=== PATIENT | female | born 1960 | race Caucasian/White ===

== ENCOUNTER 2022-07-25 08:05 | Outpatient (REF) | payer OTHER, SELFPAY ==
[2022-07-25 11:31] LABS: Appearance Urine Clear; Color Urine Yellow; Glucose Urine UA Negative (Negative); Leukocyte Esterase Urine Small (1+) (Negative); Nitrite Urine Negative (Negative); PH >= 9.0 (5.0-9.0); UMIC TRIGGER UA YES; Urine Blood Negative (Negative); Urine Ketones Negative (Negative); Urine Protein Trace mg/dL (Neg-Trace)
[2022-07-25 11:46] LABS: Bacteria Urine None Seen (None Seen); Hyaline Casts Urine 0-2 /LPF (0-2); WBC Urine 0-5 /HPF (0-5)
[2022-07-25 12:00] LABS: Alanine Aminotransferase 28 U/L (0-31); Albumin Level 4.1 g/dL (3.5-5.0); Alkaline Phosphatase 87 U/L (39-117); Anion Gap 12 (12-20); Aspartate Amino Transferase 24 U/L (5-31); Bilirubin Total 0.7 mg/dL (0.0-1.0); Blood Urea Nitrogen 9 mg/dL (9-16); Calcium 9.3 mg/dL (8.4-10.2); Carbon Dioxide 28 mmol/L (22-29); Chloride 106 mmol/L (96-108); Cholesterol 236 mg/dL; Estimated Glomerular Filt Rate > 60; Glucose Fasting 90 mg/dL (60-99); HDL Cholesterol 60 mg/dL; LDL Cholesterol Calculated 156 mg/dl; Potassium 4.3 mmol/L (3.3-5.1); Sodium 142 mmol/L (135-145); Total Protein 6.5 g/dL (6.5-8.0); Triglycerides 104 mg/dL
[2022-07-25 12:04] LABS: Creatinine Urine 186.61 mg/dL
[2022-07-25 12:17] LABS: TSH reflex Free T4 0.95 uIU/mL (0.32-4.0)
== END 2022-07-25 08:06 | disposition home or self-care (01) ==
LOC: HO.WFDLDS 08:05
PROVIDERS: Visit Provider Family Medicine
DX: Z00.00 Encounter for general adult medical examination without abnormal findings (principal); I10 Essential (primary) hypertension
CPT/HCPCS: 36415; 80053; 80061; 81001; 82043; 84443

== ENCOUNTER 2022-11-20 07:16 | Outpatient (REF) | payer SELFPAY ==
[2022-11-20 12:22] LABS: Anion Gap 14 (12-20); Blood Urea Nitrogen 9 mg/dL (9-16); Calcium 9.8 mg/dL (8.4-10.2); Carbon Dioxide 23 mmol/L (22-29); Chloride 108 mmol/L (96-108); Cholesterol 231 mg/dL; Estimated Glomerular Filt Rate > 60; Glucose Fasting 88 mg/dL (60-99); HDL Cholesterol 64 mg/dL; LDL Cholesterol Calculated 145 mg/dl; Potassium 3.8 mmol/L (3.3-5.1); Sodium 141 mmol/L (135-145); Triglycerides 112 mg/dL
== END 2022-11-20 07:17 | disposition home or self-care (01) ==
LOC: HO.WFDLDS 07:16
PROVIDERS: Visit Provider Family Medicine
DX: Z00.00 Encounter for general adult medical examination without abnormal findings (principal); E78.00 Pure hypercholesterolemia, unspecified
CPT/HCPCS: 36415; 80048; 80061

== ENCOUNTER 2022-11-21 08:22 | Outpatient (AMB) | payer BC, SELFPAY ==
--- NOTE | 2022-11-21 08:28 | A.OFFPC_ITS ---
Vital Signs 11/21/22 08:29 Height 5 ft 8 in Weight 204 lb 8 oz BMI 31.1 BP 122/64 Blood Pressure Location Rt brachial Position Sitting Respiration 12 Pulse 66 Temp 97.5 F Temp Source Temporal Artery Scan Pulse Oximetry (%) 97 Oxygen Delivery Method Room Air Intake Visit Reasons: f/u hypercholesterolemia Intake Note: Patient is here to follow up on labs drawn on 11/20/2022 with a follow up discussion of hypercholesterolemia. Patient would like to request a refill of lorazepam as she has 2 tablets left. Color Laboratory Technician Required: No Accompanied by: Self / Same As Patient Allergies Sulfa (Sulfonamide Antibiotics) [SULFA (SULFONAMIDE ANTIBIOTICS)] Allergy (Unknown, Verified 11/21/22 08:35) RASH Penicillins Allergy (Verified 11/21/22 08:35) rash sulfacet Allergy (Unknown, Uncoded 07/11/22 13:43) Rash Sulfacet-R Allergy (Unknown, Uncoded 07/11/22 13:43) rash Tobacco use date assessed: 11/21/22 Dental Screening Dental Screen Date: 11/21/22 Did you have a dental visit in the last 12 months?: Yes Did you have a dental problem in the last 6 months where you did not have access to dental care?: No Was dental information given to patient?: Patient has dentist HPI f/u hypercholesterolemia HPI Details 62 y/o female presents to f/u hypercholesterolemia. Pt has been working on a diet but is still fairly sedentary. Labs were drawn 11/20/22. Reviewed labs with pt. Triglycerides 122. TC 231. LDL improved from 156 to 145. HDL 64. She reports lorazepam has been working well for her. Blood pressure today 122/64. She is on hydrochlorothiazide 25mg daily. [facility] [place] Social History Housing: House Patient Tobacco Use Status: Never used Tobacco e-Cigarette/Vaping Use: Never Used Second Hand Smoke Exposure: No service: No Current occupational status: employed Current occupational exposures/hazards: No Cognitive needs: No Hearing needs: No Vision needs: No Questionnaire Thrive Questionnaire Date Thrive assessed: 12/28/20 KARLA-7 AMB Questionnaire KARLA-7 Date KARLA - 7 assessed: 04/05/22 Source: Developed by Drs. Ankit Navarrete, Draline Damon, Dano Starr and colleagues, with an educational bev from [employer]. Review of Systems Const Denies chills, Denies fatigue, Denies fever(s), Denies headache(s) and Denies weakness ENT Denies dizziness and Denies headache(s) Card Denies chest pain, Denies lightheadedness, Denies dyspnea and Denies other (Palpitations) Resp Denies cough, Denies dyspnea, Denies wheezing and Denies other ( shortness of breath) Musc Denies numbness and Denies tingling Neuro Denies dizziness, Denies headache(s), Denies numbness, Denies tingling, Denies paresthesias and Denies weakness Psych Denies anxiety and Denies depression Endo Denies fatigue Aller/Immun Denies wheezing Physical exam (Primary Care) Vital Signs: Last Vital Signs Temp 97.5 F 11/21/22 08:29 Pulse 66 11/21/22 08:29 Resp 12 11/21/22 08:29 BP 122/64 11/21/22 08:29 Pulse Ox 97 11/21/22 08:29 Oxygen Delivery Method Room Air 11/21/22 08:29 BMI result Body Mass Index 31.1 Tobacco/Smoking Status: Tobacco use Status Tobacco use date assessed 11/21/22 11/21/22 08:34 Patient Tobacco Use Status Never used Tobacco 11/21/22 08:28 e-Cigarette/Vaping Use Never Used 11/21/22 08:28 Thrive Assessment: Date of Thrive Assessment Date Thrive assessed 12/28/20 11/21/22 08:28 Const General: no acute distress and well developed Nutritional Appearance: well nourished Orientation/consciousness: [facility]: Yes normocephalic and Yes atraumatic Eyes General: appearance normal, both eyes and all related structures Pupils: Equal, round and reactive pupils present EOM: EOMs intact bilaterally Resp Effort & Inspection: normal respiratory effort Auscultation: clear to auscultation bilaterally Cardio Rate: regular rate Rhythm: regular rhythm Heart sounds: S1 normal heart sound present, S2 normal heart sound present, no gallops, no murmurs and no rubs Neuro General: patient oriented x3 and gait normal Cranial nerves: Yes Equal, round and reactive pupils present Psych Affect: normal affect Assessment and Plan Assessment & Plan (1) Hypercholesterolemia: Code(s): E78.00 - Pure hypercholesterolemia, unspecified Plan: Following patient's cholesterol levels and she has had some improvements with dietary changes. LDL cholesterol now 145 and HDL cholesterol has risen. Ratios are rather good She notes that she has been rather sedentary however and is having difficulty with weight loss. We discussed diet and exercise for weight loss which will likely improve her cholesterol levels further. She would like to continue avoiding statin medications for now. (2) Anxiety: Code(s): F41.9 - Anxiety disorder, unspecified Plan: Well treated with lorazepam which she takes only intermittently as needed (3) Hypertension: Code(s): I10 - Essential (primary) hypertension Plan: Blood pressure is well controlled. Goal is less than 140/90 Continue hydrochlorothiazide. Hydrate well Coding Level of Care Code Est Pt Level 3 (04880) Diagnoses Hypercholesterolemia E78.00 Anxiety F41.9 Hypertension I10
[2022-11-21 08:29] VITALS: BP 122/64; PULSE 66; RESP 12; TEMP 36.4; O2SAT 97; BMI 31.1
== END 2022-11-21 09:01 | disposition home or self-care (01) ==
PROVIDERS: PCP Family Medicine; Visit Provider Family Medicine
DX: E78.00 Pure hypercholesterolemia, unspecified (principal); F41.9 Anxiety disorder, unspecified; I10 Essential (primary) hypertension
CPT/HCPCS: 99213

== ENCOUNTER 2023-05-20 08:21 | Outpatient (AMB) | payer BC, SELFPAY ==
--- NOTE | 2023-05-20 08:21 | MHC.PC.OV ---
Vital Signs 05/20/23 08:22 Height 5 ft 8 in Weight 204 lb BMI 31.0 BP 118/68 Blood Pressure Location Rt brachial Position Sitting Respiration 13 Pulse 62 Pulse Source Pulse Oximeter Temp 97.8 F Temp Source Temporal Artery Scan Pulse Oximetry (%) 99 Oxygen Delivery Method Room Air Intake Visit Reasons: f/u hypercholesterolemia Intake Note: Patient would like refill on her lorazepam. Custodial Services Manager Required: No Accompanied by: Self / Same As Patient Allergies Sulfa (Sulfonamide Antibiotics) [SULFA (SULFONAMIDE ANTIBIOTICS)] Allergy (Unknown, Verified 05/20/23 08:26) RASH Penicillins Allergy (Verified 05/20/23 08:26) rash sulfacet Allergy (Unknown, Uncoded 07/11/22 13:43) Rash Sulfacet-R Allergy (Unknown, Uncoded 07/11/22 13:43) rash Tobacco use date assessed: 05/20/23 Dental Screening Dental Screen Date: 05/20/23 Did you have a dental visit in the last 12 months?: Yes Did you have a dental problem in the last 6 months where you did not have access to dental care?: No Was dental information given to patient?: Patient has dentist HPI f/u hypercholesterolemia HPI Details Patient?presents?for?follow-up?hypertension. Taking?hydrochlorothiazide?25?mg?daily. Blood?pressure?today?118/68. She?notes?systolic?blood?pressures?when?she?wakes?up?are?around?110?and?is?wondering?if?that?is?okay. She?has?no?dizziness?weakness?or?fatigue. Eating?a?healthy?diet Avoiding?salt?and?soda We?are?also?following?her?cholesterol?levels?and?she?is?working?on?a?diet?low?in?saturated?fats?and?cholesterol?as?well. 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 Ankit Navarrete, Darline Damon, Dano Starr and colleagues, with an educational bev from [employer]. Review of Systems Const Details: CONSTITUTIONAL no fever. no fatigue. no chills. CARDIOVASCULAR no chest pain. no palpitations. RESPIRATORY no cough. no shortness of breath. no trouble breathing. no wheezing. PSYCHIATRIC no anxiety. no depression. NEUROLOGIC no incoordination. no headache. no weakness. no dizziness. no gait abnormality. Physical exam (Primary Care) Vital Signs: Last Vital Signs Temp 97.8 F 05/20/23 08:22 Pulse 62 05/20/23 08:22 Resp 13 05/20/23 08:22 BP 118/68 05/20/23 08:22 Pulse Ox 99 05/20/23 08:22 Oxygen Delivery Method Room Air 05/20/23 08:22 BMI result Body Mass Index 31.0 Tobacco/Smoking Status: Tobacco use Status Tobacco use date assessed 05/20/23 05/20/23 08:29 Patient Tobacco Use Status Former Tobacco user 05/20/23 08:29 e-Cigarette/Vaping Use Never Used 05/20/23 08:23 Thrive Assessment: Date of Thrive Assessment Date Thrive assessed 12/28/20 05/20/23 08:23 Const Other: General Appearance: no apparent distress, pleasant. Heart: RRR, no murmurs, clicks or rubs, no gallops. Lungs: clear to auscultation. Extremities: no edema. Neurologic Exam: alert and oriented x3, gait normal, Psych: Normal affect Assessment and Plan Assessment & Plan (1) Hypertension: Code(s): I10 - Essential (primary) hypertension Plan: Blood?pressure?is?well?controlled.??Goal?is?less?than?140/90 Morning?systolic?blood?pressures?of?110?are?okay?and?she?has?no?symptoms. Reassured?her?that?these?are?good?numbers. Continue?current?medication Hydrate?well (2) Elevated LDL cholesterol level: Code(s): E78.00 - Pure hypercholesterolemia, unspecified Plan: Continue?to?work?at?a?diet?low?in?saturated?fats?and?cholesterol Continue?to?work?at?exercise?and?weight?loss Will?check?lipids?prior?to?her?next?visit (3) Anxiety: Code(s): F41.9 - Anxiety disorder, unspecified Plan: Patient?notes?that?she?was?out?of?her?lorazepam?for?short?period?of?time?while?on?vacation?but?when?she?returned?from?vacation?and?it?was?time?to?think?about?work?again,?she?became?anxious. Using?lorazepam?as?needed. Continue?current?regimen Orders: Orders Lipid Panel Today Z00.00 - Encounter for general adult medical examination without abnormal findings Microalbumin, Random (w Creat) Today I10 - Essential (primary) hypertension UA and rflx microscopic Today Z00.00 - Encounter for general adult medical examination without abnormal findings Complete Blood Count Auto Diff Today Z00.00 - Encounter for general adult medical examination without abnormal findings Comprehensive [place]. Panel Fast Today Z00.00 - Encounter for general adult medical examination without abnormal findings TSH reflex Free T4 Today Z00.00 - Encounter for general adult medical examination without abnormal findings Medications: Refilled lorazepam 0.5 mg PO DAILY 28 days PRN 28 tabs 0RF anxiety Coding Level of Care Code Est Pt Level 4 (31474) Diagnoses Hypertension I10 Elevated LDL cholesterol level E78.00 Anxiety F41.9
[2023-05-20 08:22] VITALS: BP 118/68; PULSE 62; RESP 13; TEMP 36.6; O2SAT 99; BMI 31.0
== END 2023-05-20 09:02 | disposition home or self-care (01) ==
PROVIDERS: PCP Family Medicine; Visit Provider Family Medicine
DX: I10 Essential (primary) hypertension (principal); E78.00 Pure hypercholesterolemia, unspecified; F41.9 Anxiety disorder, unspecified
CPT/HCPCS: 99214

== ENCOUNTER 2023-07-08 07:43 | Outpatient (REF) | payer BC, SELFPAY ==
[2023-07-08 12:07] LABS: MANUAL DIFF FLAG NO
[2023-07-08 12:13] LABS: Basophils Percent Auto 0.3 % (0-2); Eosinophils Absolute Auto 0.1 X10*3/uL (0.0-0.4); Eosinophils Percent Auto 2.4 % (0-4); Hematocrit 41.6 % (37.0-47.0); Hemoglobin 13.8 g/dl (12.0-16.0); Imm Gran Abs Auto 0.01 X10*3/uL (0.00-0.03); Imm Gran Pct Auto 0.3 % (0.0-0.4); Lymphocytes Absolute Auto 1.5 X10*3/uL (1.2-4.9); Lymphocytes Percent Auto 43.5 % (20-40); Mean Corpuscular HGB Conc 33.2 g/dl (31.0-35.0); Mean Corpuscular Hemoglobin 27.7 pg (27.0-33.0); Mean Corpuscular Volume 83.5 fL (80.0-98.0); Mean Platelet Volume 10.2 fL (9.4-12.3); Monocytes Absolute Auto 0.3 X10*3/uL (0.1-1.2); Monocytes Percent Auto 9.2 % (2-11); Neutrophils Absolute Auto 1.5 x10*3/uL (2.0-8.3); Neutrophils Percent Auto 44.3 % (45-73); Platelet Count 214 X10*3/uL (160-400); Red Blood Count 4.98 X10*6/uL (4.20-5.50); Red Cell Distribution Width 13.1 % (11.0-16.0); White Blood Count 3.4 X10*3/uL (4.8-10.8)
[2023-07-08 12:14] LABS: Appearance Urine Clear; Color Urine Yellow; Glucose Urine UA Negative (Negative); Leukocyte Esterase Urine Trace (Negative); Nitrite Urine Negative (Negative); PH >= 9.0 (5.0-9.0); UMIC TRIGGER UA YES; Urine Blood Negative (Negative); Urine Ketones Negative (Negative); Urine Protein Trace mg/dL (Neg-Trace)
[2023-07-08 12:39] LABS: Bacteria Urine None Seen (None Seen); Hyaline Casts Urine 0-2 /LPF (0-2); RBC Urine 0-2 /HPF (0-2); WBC Urine 0-5 /HPF (0-5)
[2023-07-08 13:00] LABS: Creatinine Urine 180.68 mg/dL; Microalbum/Creatinine Ratio Ur 8.8 ug/mg cr (<30)
[2023-07-08 13:25] LABS: TSH reflex Free T4 0.83 uIU/mL (0.32-4.0)
[2023-07-08 13:26] LABS: Anion Gap 12 (12-20)
[2023-07-08 13:31] LABS: Alanine Aminotransferase 18 U/L (0-31); Alkaline Phosphatase 80 U/L (39-117); Aspartate Amino Transferase 17 U/L (5-31); Bilirubin Total 0.7 mg/dL (0.0-1.0); Blood Urea Nitrogen 14 mg/dL (9-16); Calcium 9.3 mg/dL (8.4-10.2); Carbon Dioxide 27 mmol/L (22-29); Chloride 106 mmol/L (96-108); Cholesterol 204 mg/dL (<200); Estimated Glomerular Filt Rate > 60; Glucose Fasting 86 mg/dL (60-99); HDL Cholesterol 63 mg/dL (>40); LDL Cholesterol Calculated 126 mg/dL (<100); Potassium 3.7 mmol/L (3.3-5.1); Sodium 141 mmol/L (135-145); Total Protein 6.7 g/dL (6.5-8.0); Triglycerides 79 mg/dL (<150)
== END 2023-07-08 07:44 | disposition home or self-care (01) ==
LOC: HO.WFDLDS 07:43
PROVIDERS: Visit Provider Family Medicine
DX: Z00.00 Encounter for general adult medical examination without abnormal findings (principal); E78.00 Pure hypercholesterolemia, unspecified; I10 Essential (primary) hypertension
CPT/HCPCS: 36415; 80053; 80061; 81001; 81003; 82043; 82570; 84443; 85025

== ENCOUNTER 2023-08-21 12:53 | Outpatient (AMB) | payer BC, SELFPAY ==
[2023-08-21 12:58] VITALS: BP 124/76; PULSE 60; RESP 14; TEMP 36.4; O2SAT 97; BMI 29.6
--- NOTE | 2023-08-21 12:58 | A.OFFPC_ITS ---
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: No Accompanied by: Self / Same As Patient Allergies Sulfa (Sulfonamide Antibiotics) [SULFA (SULFONAMIDE ANTIBIOTICS)] Allergy (Unknown, Verified 08/21/23 13:02) RASH Penicillins Allergy (Verified 08/21/23 13:02) rash sulfacet Allergy (Unknown, Uncoded 07/11/22 13:43) Rash Sulfacet-R Allergy (Unknown, Uncoded 07/11/22 13:43) rash Medication List - Last Reconciled 08/21/23 by Keny Matias MD hydrochlorothiazide 25 mg PO DAILY 90 days lorazepam 0.5 mg PO DAILY PRN 28 days omeprazole 20 mg PO DAILY Tobacco use date assessed: 08/21/23 Dental Screening Dental Screen Date: 08/21/23 Did you have a dental visit in the last 12 months?: Yes Did you have a dental problem in the last 6 months where you did not have access to dental care?: No Was dental information given to patient?: Patient has dentist [facility] Medical History No pertinent past medical history Surgical History No pertinent past surgical history Social History Household Members: Spouse and Family Both parents involved: No Caregiver staying overnight: No Housing: House Are you a primary healthcare social worker to a significant other at home: No Do you presently have visiting nurse or other home services: No 75 years or older and lives alone: No Alcohol intake: current Alcohol intake frequency: holidays/special occasions only Alcohol type: hard liquor and other Patient Tobacco Use Status: Former Tobacco user e-Cigarette/Vaping Use: Never Used Second Hand Smoke Exposure: No Encourage to stop smoking at least 8hrs prior to surgery: No Use of substances other than those prescribed or required for medical reasons: No Currently Displaying Signs/Symptoms of Drug Intoxication Withdrawal: No Any prior treatment program specific to substance use: No Have you been hit, kicked, punched, or otherwise hurt by someone within the past year? 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 1. Little interest or pleasure in doing things: not at all 2. Feeling down, depressed, or hopeless: not at all 3. Trouble falling or staying asleep, or sleeping too much: not at all 4. Feeling tired or having little energy: not at all 5. Poor appetite or overeating: not at all 6. Feeling bad about yourself - or that you are a failure or have let yourself or your family down: not at all 7. Trouble concentrating on things, such as reading the newspaper or watching television: not at all 8. Moving or speaking so slowly that other people could have noticed. Or the opposite - being so fidgety or restless that you have been moving around a lot m ore than usual: not at all 9. Thoughts that you would be better off or of hurting yourself in some way: not at all Total score: 0 Depression Screening Interpretation: Negative Depression Screening Done: Yes 54940 - PHQ-9 Billing: Yes Source: Developed by Drs. Ankit Navarrete, Darline Damon, Dano Starr and colleagues, with an educational bev from [employer]. Thrive Questionnaire Date Thrive assessed: 08/21/23 I am a: Patient What is your living situation today?: I have a steady place to live Within the past 12 months, did the food you bought not last and you didn't have the money to get more?: Never true Within the past 12 months, did you worry whether your food would run out before you got money to buy more?: Never true Do you have trouble paying for medicines?: No Do you have trouble getting transportation to medical appointments?: No Do you have trouble paying your heating and electricity bill?: No Do you have trouble taking care of your child, family member or friend?: No Do you have trouble with day-to-day activities such as bathing, preparing meals, shopping, managing finances, etc.?: No Are you currently unemployed and looking for a job?: No Are you interested in more education?: No Please select the resources that you would like help with: None Currently or been in a relationship where the following occur: no concerns reported THRIVE Score: 0 AUDIT C Alcohol Use Questionnaire (AUDIT-C) 1. How often do you have a drink containing alcohol?: 2-4 times a month 2. How many drinks containing alcohol do you have on a typical day when you are drinking?: 1 or 2 3. How often do you have six or more drinks on one occasion?: Never Total Score: 2 KARLA-7 AMB Questionnaire KARLA-7 Date KARLA - 7 assessed: 08/21/23 Feeling nervous, anxious, or on edge: 0 = Not at all Not being able to stop or control worryin = Not at all Worrying too much about different things: 0 = Not at all Trouble relaxin = Not at all Being so restless that it is hard to sit still: 0 = Not at all Becoming easily annoyed or irritable: 0 = Not at all Feeling afraid as if something awful might happen: 0 = Not at all Total KARLA-7 score (0-4 normal; 5-9 mild; 10-14 moderate; 15-21 severe): 0 Source: Developed by Drs. Ankit Navarrete, Darline Damon, Dano Starr and colleagues, with an educational bev from [employer]. KARLA-7 Assessment Billing KARLA-7 Assessment Tool: KARLA-7 Assessment 78068 Physical exam (Primary Care) Vital Signs: Last Vital Signs Temp 97.6 F 08/21/23 12:58 Pulse 60 08/21/23 12:58 Resp 14 08/21/23 12:58 BP 124/76 08/21/23 12:58 Pulse Ox 97 08/21/23 12:58 Oxygen Delivery Method Room Air 08/21/23 12:58 BMI result Body Mass Index 29.6 Tobacco/Smoking Status: Tobacco use Status Tobacco use date assessed 08/21/23 08/21/23 13:08 Patient Tobacco Use Status Former Tobacco user 08/21/23 13:08 e-Cigarette/Vaping Use Never Used 08/21/23 13:08 PHQ-9: PHQ-9 Score PHQ-9: Total score 0 08/21/23 13:08 Depression Screening Interpretation: Negative Thrive Assessment: Date of Thrive Assessment Date Thrive assessed 08/21/23 08/21/23 13:08 Currently or been in a relationship where the following occur: no concerns reported Assessment and Plan Assessment & Plan (1) Adult general medical exam: Code(s): Z00.00 - Encounter for general adult medical examination without abnormal findings Plan: 63-year-old?female?presents?for?complete?physical?exam (2) SOB (shortness of breath): Code(s): R06.02 - Shortness of breath Plan: Mild?shortness?of?breath?which?patient?associates?mostly?with?anxiety?but?she?is ?uncertain?if?also?associated?with?exertion. No?chest?pain EKG:??Mild?sinus?bradycardia?with?left?axis?deviation.??No?obvious?hypertrophy.? ?No?ST-T-wave?changes. Will?get?echocardiogram (3) GERD (gastroesophageal reflux disease): Code(s): K21.9 - Gastro-esophageal reflux disease without esophagitis Plan: Occasional?breakthrough?GERD?but?mostly?controlled?with?omeprazole Continue?omeprazole?and?avoid?trigger?foods (4) Hypercholesterolemia: Code(s): E78.00 - Pure hypercholesterolemia, unspecified Plan: Patient?had?elevated?lipids?and?changed?her?diet LDL?cholesterol?now?at?goal?and?her?HDL?is?desirably?high HDL?ratios?are?ideal Continue?diet?low?in?saturated?fats?and?cholesterol.??Continue?weight?loss?and?e xercise. (5) Anxiety: Code(s): F41.9 - Anxiety disorder, unspecified Plan: Still?has?ongoing?anxiety She?is?on?lorazepam She?is?thinking?about?retiring?or?switching?to?part-time?and?this?may?help Fairly?stable.??No?medication?changes?today. (6) Hypertension: Code(s): I10 - Essential (primary) hypertension Plan: Her?blood?pressure?is?well?controlled?on?hydrochlorothiazide Goal?is?less?than?140/90 Continue?current?medication Continue?weight?loss?and?exercise Orders: Orders CA echo transthoracic complete Today I10 - Essential (primary) hypertension, R06.02 - Shortness of breath, R94.31 - Abnormal electrocardiogram [ECG] [EKG] AMB EKG-In Office Today R06.02 - Shortness of breath Coding Level of Care Code Tele Est Pt Level 3 (18070) Est Pt Prev Care 40-64y(74059) Diagnoses Adult general medical exam Z00.00 SOB (shortness of breath) R06.02 GERD (gastroesophageal reflux disease) K21.9 Hypercholesterolemia E78.00 Anxiety F41.9 Hypertension I10 Additional Codes KARLA-7 Assessment Billing - KARLA-7 Assessment Tool: KARLA-7 Assessment 17445 ([id number])
== END 2023-08-21 16:24 | disposition home or self-care (01) ==
PROVIDERS: PCP Family Medicine; Visit Provider Family Medicine
DX: Z00.00 Encounter for general adult medical examination without abnormal findings (principal); R06.02 Shortness of breath; I10 Essential (primary) hypertension; K21.9 Gastro-esophageal reflux disease without esophagitis; E78.00 Pure hypercholesterolemia, unspecified; F41.9 Anxiety disorder, unspecified
CPT/HCPCS: 93000; 99213; 99396

== ENCOUNTER → 2023-09-11 07:50 | Outpatient (REF) | payer BC, SELFPAY ==
--- NOTE | 2023-09-11 07:52 | CA_ITS ---
Transthoracic Echocardiogram Patient (Last, First, Middle): Lelo Foster, Gender: Female Date of : 1960 Age: 63 Procedure Date: 09/11/2023 Procedure Type: Transthoracic Echocardiogram Location: OP Height: 170.18 cm Weight: 88.45 kg BSA: 2.00 m2 Heart Rate: 64 bpm BP: 124 / 72 mmHg Cake Decorator: SB Referring MD: Keny Matias MD Symptoms: R06.02 - Shortness of breath, R94.31-Abn ECG, I10 Essential (primary)HTN Study Quality: Adequate ECG Rhythm: Sinus Conclusions: - The left ventricular systolic function is normal. The calculated ejection fraction is 62% by biplane method. - There is mild aortic valve regurgitation. Findings Left Ventricle Normal left ventricular cavity size. The left ventricular systolic function is normal. The calculated ejection fraction is 62% by biplane method. There is no evidence of regional wall motion abnormalities. Evidence suggests grade I (mild) diastolic dysfunction. There is mild septal and mild basal asymmetric hypertrophy. Right Ventricle Normal right ventricular cavity size and systolic function. Atria Both atria are normal in size. Aortic Valve There is a normal trileaflet aortic valve. There is no aortic valve stenosis. There is mild aortic valve regurgitation. Mitral Valve There is mild anterior mitral leaflet thickening. There is trace mitral valve regurgitation. There is no mitral valve stenosis. Pulmonic Valve The pulmonic valve is likely normal. Tricuspid Valve Normal tricuspid valve structure. There is trace tricuspid valve regurgitation. There is no evidence of pulmonary hypertension. Great Vessels The asc aorta is normal in size. Venous The inferior vena cava is normal in size and collapses greater than 50% with inspiration. Pericardium/Pleural There is no evidence of pericardial effusion. Prior Study Comparison No prior study available for comparison. Measurements 2D Linear Measurements IVSd: 0.64 0.6-0.9/0.6-1.0 cm LVIDd: 4.94 3.9-5.3/4.2-5.9 cm LVIDd Index: 2.47 2.4-3.2/2.2-3.1 cm/m2 LVIDs: 3.14 2.0-3.6 cm LVPWd: 0.78 0.7-1.1 cm LA Diam: 4.10 2.7-3.8/3.0-4.0 cm LAIDs Index: 2.05 1.5-2.3 cm/m2 LV Mass: 142.68 67-162/88-224 g LV Mass Index: 71.34 43-95/49-115 g/m2 LVOT Diam: 2.20 3.0+(-)1.3 cm 2D Systolic Function EF 4C: 61.90 >55% EF 2C: 64.60 >55% EF BiP: 62.40 >55% Mitral Valve MV Pk E: 0.74 MV PK A: 0.78 MV Decel Time: 215.00 E/A: 0.90 E'Lateral: 6.64 E'Medial: 6.20 E/E' Med: 12.00 E/E' Lat: 11.20 PHT: 63.00 MVA PHT: 3.49 Decel Blanco: 3.45 Aortic Valve AoV Pk Ham: 1.35 AoV Mn Ham: 0.86 AoV VTI: 0.28 AoV Pk Grad: 7.00 Aov Mn Grad: 4.00 KATY Cont.VTI: 3.21 AI Pk Ham: 4.36 AI VTI: 2.30 AI Blanco: 2.05 LVOT LVOT Pk Ham: 1.03 LVOT Mn Ham: 0.69 LVOT VTI: 0.24 LVOT Pk Grad: 4.00 LVOT Mn Grad: 2.00 LVOT Diam: 2.20 LVOT Area: 3.80 Diastolic Function MV Pk E: 0.74 MV Pk A: 0.78 E/A: 0.90 E'Medial: 6.20 E/E' Med: 12.00 E' Laterial: 6.64 E/E' Lat: 11.20 Right Ventricle TAPSE (mm): 22.20 TVS' Ham: 17.70 Tricuspid Valve RA Press: 3.00 Great Vessels Aorta Sinus of Valsalva: 3.70 2.0-3.5 cm Ao Asc: 3.40 2.1-3.4 cm Pulmonary Veins Pulm Vein S/D 1.60 Pulmonary Valve PV Pk Ham: 0.75 Peak PV Grad: 2.00 Updated in Other Vendor System with Status of Final Filipe Langley MD electronically signed on 09/12/2023 3:21:21 PM with status of Final
== END ==
LOC: HO.CARD 07:50
PROVIDERS: PCP Family Medicine; Visit Provider Family Medicine
DX: R06.02 Shortness of breath (principal); R94.31 Abnormal electrocardiogram [ECG] [EKG]; I10 Essential (primary) hypertension
CPT/HCPCS: 93306

== ENCOUNTER → 2023-09-11 07:52 | Outpatient (BNV) | payer BC, SELFPAY | PROVIDERS: PCP Family Medicine; Visit Provider Internal Medicine | DX: I35.1 Nonrheumatic aortic (valve) insufficiency (principal); I42.2 Other hypertrophic cardiomyopathy | CPT/HCPCS: 93306 ==

== ENCOUNTER 2024-02-10 08:50 | Outpatient (AMB) | payer OTHER, SELFPAY ==
--- NOTE | 2024-02-10 09:05 | A.OFFPC_ITS ---
Vital Signs 02/10/24 09:08 Height 5 ft 8 in Weight 191 lb BMI 29.0 BP 107/62 Blood Pressure Location Lt brachial Position Sitting Respiration 14 Pulse 68 Pulse Source Pulse Oximeter Temp 97.3 F Temp Source Temporal Artery Scan Pulse Oximetry (%) 97 Oxygen Delivery Method Room Air Intake Visit Reasons: Ultrasound f/u Intake Note: F/U ultrasound Allergies Sulfa (Sulfonamide Antibiotics) [SULFA (SULFONAMIDE ANTIBIOTICS)] Allergy (Unknown, Verified 02/10/24 09:07) RASH Penicillins Allergy (Verified 02/10/24 09:07) rash sulfacet Allergy (Unknown, Uncoded 07/11/22 13:43) Rash Sulfacet-R Allergy (Unknown, Uncoded 07/11/22 13:43) rash Medication List - Last Reconciled 02/10/24 by Keny Matias MD hydrochlorothiazide 25 mg PO DAILY 90 days lorazepam 0.5 mg PO DAILY PRN 28 days omeprazole 20 mg PO DAILY Tobacco use date assessed: 08/21/23 Dental Screening Dental Screen Date: 08/21/23 HPI Ultrasound f/u HPI Details 64 y/o female presents today to review e chocardiogram for shortness of breath. EKG had shown L axis deviation and mild sinus bradycardia but otherwise okay. Echocardiogram 09/11/23 shows: - The left ventricular systolic function is normal. The calculated ejection fraction is 62% by biplane method. - There is mild aortic valve regurgitati on. Notes she continues to get exercise. Notes shortness of breath have improved. [facility], [facility] Medical History (Updated 11/20/23 @ 13:29 by Niesha Middleton CMA) No pertinent past medical history Surgical History No pertinent past surgical history Social History Household Members: Spouse and Family Both parents involved: No Caregiver staying overnight: No Housing: House Are you a primary wound care specialist to a significant other at home: No Do you presently have visiting nurse or other home services: No 75 years or older and lives alone: No Alcohol intake: current Alcohol intake frequency: holidays/special occasions only Alcohol type: hard liquor and other Patient Tobacco Use Status: Former Tobacco user e-Cigarette/Vaping Use: Never Used Second Hand Smoke Exposure: No service: No Current occupational status: employed 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 Ankit Navarrete, Darline Damon, Dano Starr and colleagues, with an educational bev from [employer]. Review of Systems Const Denies chills, Denies fatigue, Denies fever(s), Denies headache(s) and Denies weakness ENT Denies dizziness and Denies headache(s) Card Denies dyspnea Resp Denies cough, Denies dyspnea, Denies wheezing and Denies other (shortness of breath) Musc Denies numbness and Denies tingling Neuro Denies dizziness, Denies headache(s), Denies numbness, Denies tingling and Denies weakness Psych Denies anxiety and Denies depression Endo Denies fatigue Aller/Immun Denies wheezing Physical exam (Primary Care) Vital Signs: Last Vital Signs Temp 97.3 F 02/10/24 09:08 Pulse 68 02/10/24 09:08 Resp 14 02/10/24 09:08 BP 107/62 02/10/24 09:08 Pulse Ox 97 02/10/24 09:08 Oxygen Delivery Method Room Air 02/10/24 09:08 BMI result Body Mass Index 29.0 Tobacco/Smoking Status: Tobacco use Status Tobacco use date assessed 08/21/23 02/10/24 09:06 Patient Tobacco Use Status Former Tobacco user 02/10/24 09:06 e-Cigarette/Vaping Use Never Used 02/10/24 09:06 Thrive Assessment: Date of Thrive Assessment Date Thrive assessed 08/21/23 02/10/24 09:06 Const General: well developed; No acute distress Nutritional Appearance: well nourished Orientation/consciousness: patient oriented x3 HENMT Head: Yes normocephalic and Yes atraumatic Eyes General: appearance normal, both eyes and all related structures Pupils: Equal, round and reactive pupils present EOM: EOMs intact bilaterally Resp Effort & Inspection: normal respiratory effort Neuro General: patient oriented x3 and gait normal Cranial nerves: Yes Equal, round and reactive pupils present Psych Affect: normal affect Coding Level of Care Code Est Pt Level 3 (37051) Diagnoses SOB (shortness of breath) R06.02 Hypertension I10 Assessment & Plan Assessment & Plan (1) SOB (shortness of breath): Code(s): R06.02 - Shortness of breath Category: Medical Plan: Echocardiogram?is?essentially?normal?with?EF?62%?and?only?mi ld?aortic?regurgitation. Shortness?of?breath?has?resolved?since?patient?changed?jobs?and?anxiety?level?naik s?decreased.??She?had?suspected?anxiety?was?a?cause?of?her?shortness?of?breath?a lready. Advised?she?get?plenty?of?exercise?and?continue?controlling?her?blood?pressure (2) Hypertension: Code(s): I10 - Essential (primary) hypertension Category: Medical Plan: Blood?pressure?is?well?controlled.??Goal?is?less?than?140/90 If?she?continues?to?work ?on?exercise?and?weight?loss?and?blood?pressure?remains?on?the?lower?side,?she?c an?try?half?a?tablet?of?hydrochlorothiazide She?will?keep?a?log?of?her?blood?pressures?for?next?visit
[2024-02-10 09:08] VITALS: BP 107/62; PULSE 68; RESP 14; TEMP 36.3; O2SAT 97; BMI 29.0
== END 2024-02-10 09:29 | disposition home or self-care (01) ==
LOC: HO.HMCFM 08:50
PROVIDERS: PCP Family Medicine; Visit Provider Family Medicine
DX: R06.02 Shortness of breath (principal); I10 Essential (primary) hypertension

== ENCOUNTER → 2024-02-10 08:50 | Outpatient (BNVA) | payer OTHER, SELFPAY | PROVIDERS: PCP Family Medicine; Visit Provider Family Medicine ==

== ENCOUNTER 2024-05-11 08:39 | Outpatient (AMB) | payer OTHER, SELFPAY ==
--- NOTE | 2024-05-11 08:54 | A.OFFPC_ITS ---
Vital Signs 05/11/24 08:57 Height 5 ft 8 in Weight 195 lb BMI 29.6 BP 108/70 Blood Pressure Location Rt brachial Position Sitting Respiration 16 Pulse 64 Pulse Source Pulse Oximeter Temp 98.2 F Temp Source Oral Pulse Oximetry (%) 99 Oxygen Delivery Method Room Air Intake Visit Reasons: f/u hypertension Intake Note: f/u for htn medication refill Allergies Sulfa (Sulfonamide Antibiotics) [SULFA (SULFONAMIDE ANTIBIOTICS)] Allergy (Unknown, Verified 05/11/24 08:55) RASH Penicillins Allergy (Verified 05/11/24 08:55) rash sulfacet Allergy (Unknown, Uncoded 07/11/22 13:43) Rash Sulfacet-R Allergy (Unknown, Uncoded 07/11/22 13:43) rash Medication List - Last Reconciled 05/11/24 by Keny Matias MD hydrochlorothiazide 12.5 mg PO DAILY 90 days lorazepam 0.5 mg PO DAILY PRN 28 days omeprazole 20 mg PO DAILY Tobacco use date assessed: 08/21/23 Dental Screening Dental Screen Date: 08/21/23 HPI f/u hypertension HPI Details 64 y/o female presents to f/u hypertensi on. Blood pressure today 108/70, 64p. She is on hydrochlorothiazide 25mg daily. Also has complaints of L calf pain and varicose veins. [facility] Medical History (Updated 05/11/24 @ 09:37 by Haim Velarde) No pertinent past medical history Surgical History No pertinent past surgical history Social History Household Members: Spouse and Family Both parents involved: No Caregiver staying overnight: No Housing: House Are you a primary critical care registered nurse to a significant other at home: No Do you presently have visiting nurse or other home services: No 75 years or older and lives alone: No Alcohol intake: current Alcohol intake frequency: holidays/special occasions only Alcohol type: hard liquor and other Patient Tobacco Use Status: Former Tobacco user e-Cigarette/Vaping Use: Never Used Second Hand Smoke Exposure: No service: No Current occupational status: employed 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 1. Little interest or pleasure in doing things: not at all 2. Feeling down, depressed, or hopeless: not at all 3. Trouble falling or staying asleep, or sleeping too much: not at all 4. Feeling tired or having little energy: not at all 5. Poor appetite or overeating: not at all 6. Feeling bad about yourself - or that you are a failure or have let yourself or your family down: not at all 7. Trouble concentrating on things, such as reading the newspaper or watching television: not at all 8. Moving or speaking so slowly that other people could have noticed. Or the opposite - being so fidgety or restless that you have been moving around a lot more than usual: not at all 9. Thoughts that you would be better off or of hurting yourself in some way: not at all Total score: 0 Source: Developed by Drs. Ankit Navarrete, Darline Damon, Dano Starr and colleagues, with an educational bev from [employer]. Thrive Questionnaire Date Thrive assessed: 08/21/23 I am a: Patient What is your living situation today?: I have a steady place to live Within the past 12 months, did the food you bought not last and you didn't have the money to get more?: Never true Within the past 12 months, did you worry whether your food would run out before you got money to buy more?: Never true Do you have trouble paying for medicines?: No Do you have trouble getting transportation to medical appointments?: No Do you have trouble paying your heating and electricity bill?: No Do you have trouble taking care of your child, family member or friend?: No Do you have trouble with day-to-day activities such as bathing, preparing meals, shopping, managing finances, etc.?: No Are you currently unemployed and looking for a job?: No Are you interested in more education?: Yes Please select the resources that you would like help with: None Currently or been in a relationship where the following occur: No concerns reported THRIVE Score: 0 AUDIT C Alcohol Use Questionnaire (AUDIT-C) 1. How often do you have a drink containing alcohol?: Monthly or less 2. How many drinks containing alcohol do you have on a typical day when you are drinking?: 1 or 2 3. How often do you have six or more drinks on one occasion?: Never Total Score: 1 KARLA-7 AMB Questionnaire KARLA-7 Date KARLA - 7 assessed: 08/21/23 Feeling nervous, anxious, or on edge: 1 = Several days Not being able to stop or control worryin = Several days Worrying too much about different things: 1 = Several days Trouble relaxin = Several days Being so restless that it is hard to sit still: 1 = Several days Source: Developed by Drs. Ankit Navarrete, Darline Damon, Dano Starr and colleagues, with an educational bev from [employer]. Review of Systems Const Denies chills, Denies fatigue, Denies fever(s), Denies headache(s) and Denies weakness ENT Denies dizziness and Denies headache(s) Card Denies dyspnea Resp Denies cough, Denies dyspnea, Denies wheezing and Denies other (shortness of breath) Musc Denies numbness and Denies tingling Neuro Denies dizziness, Denies headache(s), Denies numbness, Denies tingling and Denies weakness Psych Denies anxiety and Denies depression Endo Denies fatigue Aller/Immun Denies wheezing Physical exam (Primary Care) Vital Signs: Last Vital Signs Temp 98.2 F 05/11/24 08:57 Pulse 64 05/11/24 08:57 Resp 16 05/11/24 08:57 BP 108/70 05/11/24 08:57 Pulse Ox 99 05/11/24 08:57 Oxygen Delivery Method Room Air 05/11/24 08:57 BMI result Body Mass Index 29.6 Tobacco/Smoking Status: Tobacco use Status Tobacco use date assessed 08/21/23 05/11/24 08:57 Patient Tobacco Use Status Former Tobacco user 05/11/24 08:57 e-Cigarette/Vaping Use Never Used 05/11/24 08:57 PHQ-9: PHQ-9 Score PHQ-9: Total score 0 05/11/24 09:36 Thrive Assessment: Date of Thrive Assessment Date Thrive assessed 08/21/23 05/11/24 08:57 Currently or been in a relationship where the following occur: No concerns reported Const General: well developed; No acute distress Nutritional Appearance: well nourished Orientation/consciousness: [facility]: Yes normocephalic and Yes atraumatic Eyes General: appearance normal, both eyes and all related structures Pupils: Equal, round and reactive pupils present EOM: EOMs intact bilaterally Resp Effort & Inspection: normal respiratory effort Auscultation: clear to auscultation bilaterally Cardio Rate: regular rate Rhythm: regular rhythm Heart sounds: S1 normal heart sound present, S2 normal heart sound present, no gallops, no murmurs and no rubs Neuro General: patient oriented x3 and gait normal Cranial nerves: Yes Equal, round and reactive pupils present Psych Affect: normal affect Coding Level of Care Code Est Pt Level 3 (16048) Diagnoses Hypertension I10 Pain of left calf M79.662 Varicose vein of leg I83.90 Assessment & Plan Assessment & Plan (1) Hypertension: Code(s): I10 - Essential (primary) hypertension Category: Medical Plan: Blood?pressure?is?well?controlled.??Goal?is?less?than?140/90 She?is?taking?hydrochlorothiazide?12.5?mg?daily.??Adjusted?med?list?to?reflect?t his. Continue?current?medication (2) Pain of left calf: Code(s): M79.662 - Pain in left lower leg Category: Medical Plan: Patient?had?posterolateral?left?calf?tenderness No?swelling?redness?or?warmth. Likely?recurrent?tendon?strain Demonstrated?stretching?exercises. Exam?not?consistent?with?DVT.??Referred?patient. (3) Varicose vein of leg: Code(s): I83.90 - Asymptomatic varicose veins of unspecified lower extremity Category: Medical Plan: Patient?has?mild?bilateral?varicose?veins. Elevate?legs Avoid?salt/sodium Can?use?OTC?compression?stockings?or?if?needed,?she?will?let?me?know?and?I?can?p rescribe?prescription?strength?stockings. Orders: Orders Microalbumin, Random (w Creat) Today I10 - Essential (primary) hypertension TSH reflex Free T4 Today Z00.00 - Encounter for general adult medical examination without abnormal findings UA and rflx microscopic Today Z00.00 - Encounter for general adult medical examination without abnormal findings Comprehensive [place]thren. Panel Fast Today Z00.00 - Encounter for general adult medical examination without abnormal findings Lipid Panel Today Z00.00 - Encounter for general adult medical examination without abnormal findings Medications: Changed From hydrochlorothiazide 25 mg PO DAILY 90 days 90 tabs 4RF To hydrochlorothiazide 12.5 mg PO DAILY 90 days 90 tabs 4RF
[2024-05-11 08:57] VITALS: BP 108/70; PULSE 64; RESP 16; TEMP 36.8; O2SAT 99; BMI 29.6
== END 2024-05-11 09:36 | disposition home or self-care (01) ==
PROVIDERS: PCP Family Medicine; Visit Provider Family Medicine
DX: I10 Essential (primary) hypertension (principal); M79.662 Pain in left lower leg; I83.90 Asymptomatic varicose veins of unspecified lower extremity

== ENCOUNTER → 2024-05-11 08:39 | Outpatient (BNVA) | payer OTHER, SELFPAY | PROVIDERS: PCP Family Medicine; Visit Provider Family Medicine ==

== ENCOUNTER 2024-09-21 08:08 | Outpatient (REF) | payer OTHER, SELFPAY ==
--- OUTSIDE RECORDS SUMMARY | 2024-09-21 08:14 | XMS_ITS ---
Author Name [facility] Organization Unknown Care Team Organization Name Specialty Phone Email Start Date End [facility]ar [facility] 09/14/2022 [facility]
[2024-09-21 11:21] LABS: Appearance Urine Clear; Color Urine Yellow; Glucose Urine UA Negative (Negative); Leukocyte Esterase Urine Trace (Negative); Nitrite Urine Negative (Negative); Specific Gravity - Urine 1.025 (1.005-1.025); UMIC TRIGGER UA YES; Urine Blood Negative (Negative); Urine Ketones Negative (Negative); Urine Protein Negative (Neg-Trace)
[2024-09-21 11:29] LABS: Bacteria Urine None Seen (None Seen); Hyaline Casts Urine 0-2 /LPF (0-2); Squamous Epithelial Cell Urine 0-2 /HPF (0-2); WBC Urine 0-5 /HPF (0-5)
[2024-09-21 11:30] LABS: RBC Urine 0-2 /HPF (0-2)
[2024-09-21 12:02] LABS: Alanine Aminotransferase 19 U/L (0-31); Albumin Level 4.3 g/dL (3.5-5.0); Alkaline Phosphatase 70 U/L (39-117); Anion Gap 12 (12-20); Aspartate Amino Transferase 23 U/L (5-31); Bilirubin Total 0.9 mg/dL (0.0-1.0); Blood Urea Nitrogen 15 mg/dL (9-16); Calcium 9.4 mg/dL (8.4-10.2); Carbon Dioxide 26 mmol/L (22-29); Chloride 107 mmol/L (96-108); Cholesterol 209 mg/dL (<200); Estimated Glomerular Filt Rate > 60; Glucose Fasting 84 mg/dL (60-99); HDL Cholesterol 61 mg/dL (>40); LDL Cholesterol Calculated 130 mg/dL (<100); Potassium 3.7 mmol/L (3.3-5.1); Sodium 141 mmol/L (135-145); Total Protein 6.9 g/dL (6.5-8.0); Triglycerides 90 mg/dL (<150)
[2024-09-21 12:06] LABS: Creatinine Urine 176.05 mg/dL; Microalbum/Creatinine Ratio Ur 5.1 ug/mg cr (<30)
== END 2024-09-21 08:09 | disposition home or self-care (01) ==
LOC: HO.WFDLDS 08:08
PROVIDERS: Visit Provider Family Medicine
DX: Z00.00 Encounter for general adult medical examination without abnormal findings (principal); I10 Essential (primary) hypertension
CPT/HCPCS: 36415; 80053; 80061; 81001; 82043; 82570; 84443

== ENCOUNTER 2024-10-07 12:53 | Outpatient (AMB) | payer OTHER, SELFPAY ==
--- NOTE | 2024-10-07 13:07 | A.OFFPC_ITS ---
Vital Signs 10/07/24 13:12 Height 5 ft 8 in Weight 190 lb BMI 28.9 BP 110/70 Blood Pressure Location Rt brachial Position Sitting Respiration 16 Pulse 57 Pulse Source Pulse Oximeter Temp 97.5 F Temp Source Oral Pulse Oximetry (%) 97 Oxygen Delivery Method Room Air Intake Visit Reasons: cpe Intake Note: patient is scheduled for cpe Is last menstrual period known: No Post menopausal: Yes Patient : No Allergies Sulfa (Sulfonamide Antibiotics) (SULFA (SULFONAMIDE ANTIBIOTICS)) Allergy (Unknown, Verified 10/07/24 13:11) RASH Penicillins Allergy (Verified 10/07/24 13:11) rash sulfacet Allergy (Unknown, Uncoded 07/11/22 13:43) Rash Sulfacet-R Allergy (Unknown, Uncoded 07/11/22 13:43) rash Medication List - Last Reconciled 10/07/24 by Keny Matias MD hydrochlorothiazide 12.5 mg PO DAILY 90 days lorazepam 0.5 mg PO DAILY PRN 28 days omeprazole 20 mg PO DAILY Tobacco use date assessed: 10/07/24 Dental Screening Dental Screen Date: 08/21/23 Did you have a dental visit in the last 12 months?: Yes Did you have a dental problem in the last 6 months where you did not have access to dental care?: No Was dental information given to patient?: Patient has dentist HPI cpe HPI Details 64 y/o female presents for a CPE with f. u labs and health maint. Labs drawn 09/21/24. Reviewed labs with pt. Triglycerides 90. TC 209. LDL 130. HDL 61. Rest of labs are fine. Still notes intermittent shortness of breath in the morning. Denies any chest pain. Does note some GERD. Pt notes hiatal hernia. Pt reports some halitosis. [facility] Medical History No pertinent past medical history Surgical History No pertinent past surgical history Social History Household Members: Spouse and Family Both parents involved: No Caregiver staying overnight: No Housing: House Are you a primary career guidance technician to a significant other at home: No Do you presently have visiting nurse or other home services: No 75 years or older and lives alone: No Alcohol intake: current Alcohol intake frequency: holidays/special occasions only Alcohol type: hard liquor and other Patient Tobacco Use Status: Former Tobacco user e-Cigarette/Vaping Use: Never Used Second Hand Smoke Exposure: No service: No Current occupational status: employed 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 1. Little interest or pleasure in doing things: not at all 2. Feeling down, depressed, or hopeless: not at all 3. Trouble falling or staying asleep, or sleeping too much: not at all 4. Feeling tired or having little energy: not at all 5. Poor appetite or overeating: not at all 6. Feeling bad about yourself - or that you are a failure or have let yourself or your family down: not at all 7. Trouble concentrating on things, such as reading the newspaper or watching television: not at all 8. Moving or speaking so slowly that other people could have noticed. Or the opposite - being so fidgety or restless that you have been moving around a lot more than usual: not at all 9. Thoughts that you would be better off or of hurting yourself in some way: not at all Total score: 0 Depression Screening Interpretation: Negative Depression Screening Done: Yes 38331 - PHQ-9 Billing: Yes Source: Developed by Drs. Ankit Navarrete, Darline Damon, Dano Strar and colleagues, with an educational bev from [employer]. Thrive Questionnaire Date Thrive assessed: 10/07/24 I am a: Patient What is your living situation today?: I have a steady place to live Within the past 12 months, did the food you bought not last and you didn't have the money to get more?: Never true Within the past 12 months, did you worry whether your food would run out before you got money to buy more?: Never true Do you have trouble paying for medicines?: No Do you have trouble getting transportation to medical appointments?: No Do you have trouble paying your heating and electricity bill?: No Do you have trouble taking care of your child, family member or friend?: No Do you have trouble with day-to-day activities such as bathing, preparing meals, shopping, managing finances, etc.?: No Are you currently unemployed and looking for a job?: No Are you interested in more education?: Yes Please select the resources that you would like help with: None Currently or been in a relationship where the following occur: No concerns reported THRIVE Score: 0 AUDIT C Alcohol Use Questionnaire (AUDIT-C) 1. How often do you have a drink containing alcohol?: Monthly or less 2. How many drinks containing alcohol do you have on a typical day when you are drinking?: 3 or 4 3. How often do you have six or more drinks on one occasion?: Never Total Score: 2 Score Reviewed/Action Taken: Yes KARLA-7 AMB Questionnaire KARLA-7 Date KARLA - 7 assessed: 10/07/24 Feeling nervous, anxious, or on edge: 0 = Not at all Not being able to stop or control worryin = Not at all Worrying too much about different things: 0 = Not at all Trouble relaxin = Not at all Being so restless that it is hard to sit still: 0 = Not at all Becoming easily annoyed or irritable: 0 = Not at all Feeling afraid as if something awful might happen: 0 = Not at all Total KARLA-7 score (0-4 normal; 5-9 mild; 10-14 moderate; 15-21 severe): 0 Source: Developed by Drs. Ankit Navarrete, Darline Damon, Dano Starr and colleagues, with an educational bev from [employer]. KARLA-7 Assessment Billing KARLA-7 Assessment Tool: KARLA-7 Assessment 01281 Review of Systems Const Denies chills, Denies fatigue, Denies fever(s), Denies headache(s) and Denies weakness Eyes Denies change in vision ENT Denies dizziness, Denies headache(s), Denies hearing loss, Denies nasal congestion, Denies sinus pain, Denies sinus pressure and Denies sore throat Card Denies chest pain, Denies lightheadedness, Denies dyspnea and Denies other (palpitations) Resp Denies cough, Denies dyspnea and Denies wheezing GI Denies abdominal pain, Denies melena, Denies hematochezia, Denies change in bowel habits, Denies dyspepsia and Denies nausea Denies hematuria and Denies dysuria Musc Denies abnormal gait, Denies myalgias, Denies arthralgias, Denies numbness and Denies tingling Skin/Breast Denies rash, Denies unusual bruising and Denies wounds Neuro Denies abnormal gait, Denies dizziness, Denies headache(s), Denies memory loss, Denies numbness, Denies Sensory deficit (Neuro), Denies tingling and Denies weakness Psych Denies anxiety, Denies depression and Denies memory loss Endo Denies cold intolerance, Denies fatigue, Denies heat intolerance, Denies polydipsia and Denies polyuria Humberto/Lymph Denies easy bleeding and Denies easy bruising Aller/Immun Denies wheezing Physical exam (Primary Care) Vital Signs: Last Vital Signs Temp 97.5 F 10/07/24 13:12 Pulse 57 10/07/24 13:12 Resp 16 10/07/24 13:12 BP 110/70 10/07/24 13:12 Pulse Ox 97 10/07/24 13:12 Oxygen Delivery Method Room Air 10/07/24 13:12 BMI result Body Mass Index 28.9 Tobacco/Smoking Status: Tobacco use Status Tobacco use date assessed 10/07/24 10/07/24 13:15 Patient Tobacco Use Status Former Tobacco user 10/07/24 13:07 e-Cigarette/Vaping Use Never Used 10/07/24 13:07 PHQ-9: PHQ-9 Score PHQ-9: Total score 0 10/07/24 13:15 Depression Screening Interpretation: Negative Thrive Assessment: Date of Thrive Assessment Date Thrive assessed 10/07/24 10/07/24 13:15 Currently or been in a relationship where the following occur: No concerns reported Const General: no acute distress, well developed, alert and awake Nutritional Appearance: well nourished Orientation/consciousness: patient oriented x3 HENMT Head: Yes normocephalic and Yes atraumatic Ears: hearing grossly normal bilaterally and TM's normal bilaterally General nose exam: Normal external nose present and Normal nares present Mouth: Normal oral and palatal mucosa present and moist mucous membranes Teeth and gingiva: dentition normal Throat: Yes posterior oropharynx normal Eyes General: appearance normal, both eyes and all related structures Pupils: Equal, round and reactive pupils present and Pupil accommodation reflex normal EOM: EOMs intact bilaterally Neck Neck: Yes normal visual inspection, Yes no lymphadenopathy and Yes trachea midline Thyroid: Thyroid normal Carotids: no bruits Lymphatic: no lymphadenopathy noted Chest Chest palpation & inspection: normal inspection of the chest Resp Effort & Inspection: normal respiratory effort Auscultation: clear to auscultation bilaterally Cardio Rate: regular rate Rhythm: regular rhythm Heart sounds: S1 normal heart sound present, S2 normal heart sound present, no gallops, no murmurs and no rubs Bruits: no abdominal aortic bruits and no carotid bruits GI Palpation (GI): No Abdominal aortic bruit present, Soft to palpation, nontender, No hepatosplenomegaly present and No Rebound tenderness present Auscultation: normal bowel sounds General: Yes no CVA tenderness Back/Spine/Pelvis Back: no CVA tenderness Cervical Spine: cervical ROM normal and No Cervical spine tenderness Thoracic/Lumbar Spine: thoraco-lumbar ROM normal, No pain with thoraco-lumbar ROM, No thoracic spinal tenderness and No lumbar spinal tenderness Skin Lesions: no lesions Rashes: no rashes Trauma: no lacerations or abrasions Wounds: no wounds Nails: normal Neuro General: patient oriented x3 Cranial nerves: Yes Equal, round and reactive pupils present Cognition (Neuro): normal cognition Gait exam (Neuro): Normal gait present Motor exam (neuro): 5/5 motor strength present throughout Sensory Exam: No Sensory deficit (Neuro) Deep tendon reflexes (DTR's): Right patellar reflex intensity grade: 2+ and Left patellar reflex intensity grade: 2+ Extrem General: Yes normal to inspection and No edema Psych Appearance: grossly normal Affect: normal affect Attitude: cooperative Thought process: Normal thought process present Coding Level of Care Code Est Pt Level 3 (36987) Est Pt Prev Care 40-64y(25668) Diagnoses Adult general medical exam Z00.00 Hypercholesterolemia E78.00 Hypertension I10 SOB (shortness of breath) R06.02 GERD (gastroesophageal reflux disease) K21.9 Hiatal hernia K44.9 Halitosis R19.6 Screening for colon cancer Z12.11 Breast cancer screening by mammogram Z12.31 Screening for cervical cancer Z12.4 Additional Codes KARLA-7 Assessment Billing - KARLA-7 Assessment Tool: KARLA-7 Assessment 25582 ([id number]) PHQ-9 - 66226 - PHQ-9 Billing: Yes ([id number]) Assessment & Plan Assessment & Plan (1) Adult general medical exam: Code(s): Z00.00 - Encounter for general adult medical examination without abnormal findings Category: Medical Plan: 64-year-old?female?presents?for?complete?physical?exam Encouraged?healthy?diet?with?active?lifestyle?and?plenty?of?exercise (2) Hypercholesterolemia: Code(s): E78.00 - Pure hypercholesterolemia, unspecified Category: Medical Plan: LDL?cholesterol?remains?too?high Start?atorvastatin Will?recheck?lipids?in?about?3?months (3) Hypertension: Code(s): I10 - Essential (primary) hypertension Category: Medical Plan: Blood?pressure?is?controlled.??Goal?is?less?than?140/90 Continue?current?medication (4) SOB (shortness of breath): Code(s): R06.02 - Shortness of breath Category: Medical Plan: Mild?SOB?without?chest?pain?when?waking?up?in?the?morning?or?with?taking?hot?jack wers EKG?and?echocardiogram?last?year?were okay. Treating?GERD-see?below Advised?for?showers?and?cool?air If?she?still?having?difficulty?will?check?PFTs (5) GERD (gastroesophageal reflux disease): Code(s): K21.9 - Gastro-esophageal reflux disease without esophagitis Category: Medical Plan: Ongoing?GERD?and?patient?has?history?of?hiatal?hernia She?is?taking?omeprazole Will?refer?to?Gastroenterology?as?she?would?like a?2nd?opinion?about?hiatal?hernia-see?below Can?continue? 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 (7) Halitosis: Code(s): R19.6 - Halitosis Category: Medical Plan: As?above,?checking?H?pylori?and?patient?is?referred?to?Gastroenterology Also?advised?she?discuss?with?her?dentist.??She?notes?that?she?is?slightly?behin d?on?dental?appointments?due?to?insurance?changes. (8) Screening for colon cancer: Code(s): Z12.11 - Encounter for screening for malignant neoplasm of colon Category: Medical Plan: Up-to-date?with?colonoscopy (9) Breast cancer screening by mammogram: Code(s): Z12.31 - Encounter for screening mammogram for malignant neoplasm of breast Category: Medical Plan: Mammogram?in?July?was?negative?for?malignancy Will?continue?annual?screening (10) Screening for cervical cancer: Code(s): Z12.4 - Encounter for screening for malignant neoplasm of cervix Category: Medical Plan: Followed?by??Kenneth Patient?is?up-to-date?with?Pap?smear Patient?and?I?discuss?own?density?testing?and?she?will?start?this?at?age?66 Orders: Orders LDL Cholesterol Direct Today E78.00 - Pure hypercholesterolemia, unspecified, E78.5 - Hyperlipidemia, unspecified H pylori Ag Stool Today K21.9 - Gastro-esophageal reflux disease without esophagitis, R19.6 - Halitosis Comprehensive [place]. Panel Fast Today E78.00 - Pure hypercholesterolemia, unspecified, Z00.00 - Encounter for general adult medical examination without abnormal findings Referrals Gastroenterology Referral K21.9 - Gastro-esophageal reflux disease without esophagitis, K44.9 - Diaphragmatic hernia without obstruction or gangrene, R19.6 - Halitosis Medications: New atorvastatin (Lipitor) 20 mg PO BEDTIME 90 tabs 3RF 90 days
[2024-10-07 13:12] VITALS: BP 110/70; PULSE 57; RESP 16; TEMP 36.4; O2SAT 97; BMI 28.9
--- OUTSIDE RECORDS SUMMARY | 2024-10-07 15:20 | XMS_ITS | Encounter Summary ---
Author Organization [facility] Address [address] [place] [address] Care Team Providers Care Hospice Team Lead Name Role Phone Keny Matias MD Primary Care Provider [phone] Encounter Details Date Type Department Care Team (Late st Contact Info) Description 07/23/2024 Lab Requisition [facility] - Main Lab [address] [facility] [place] [phone] Mavis Mckeon MD [address] [facility] [address] [address] [place] [id number] Dysuria Social History Tobacco Use Types Packs/Day Years Used Date Smoking Tobacco: Former Cigarettes 0.5 10 1 - 1989 Passive Smoke Exposure: Past Alcohol Use Standard Drinks/Week Comments Yes 2 (1 standard drink = 0.6 oz pur e alcohol) COUPLE TIMES A MONTH Interpersonal Safety Answer Date Record ed Physical Abuse 04/01/2024 Verbal Abuse 04/01/2024 Comments No Sex and Gender Information Value Date Recorded Sex Assigned at Female 06/04/2024 3:39 PM EST Legal Sex Female 12:38 AM EST Gender Identity Female 06/04/2024 3:39 PM EST Sexual Orientation Not on file documented as of this encounter Plan of Treatment Not on file documented as of this encounter Procedures Procedure Name Priority Date/Time Associated Diagnosis Comments BACTERIAL IDENTIFICATION AND SUSCEPTIBILITY, AEROBIC Routine 07/22/2024 12:00 AM EDT Dysuria documented in this encounter Results * (ABNORMAL) Bacterial identification and susceptibility, aerobic (07/22/2024 12:00 AM EDT) Culture, Bacterial ID and Sensitivity Light Growth Escherichia coli(A) HOMER 07/24/2024 9:35 AM EDT [facility] Other Urine specimen from urethra / Unknown 07/22/2024 07/23/2024 10:21 AM EDT Narrative Organism Antibiotic Method Susceptibility Escherichia coli Amoxicillin/Clavulanate HOMER <=2 ug/ml: Susceptible Escherichia coli Ampicillin/Sulbactam HOMER <=2 ug/ml: Susceptible Escherichia coli Piperacillin/Tazobactam HOMER <=4 ug/ml: Susceptible Escherichia coli Cefazolin (Urine) HOMER <=1 ug/ml: Susceptible Escherichia coli Cefoxitin HOMER <=4 ug/ml: Susceptible Escherichia coli Ceftazidime HOMER <=0.5 ug/ml: Susceptible Escherichia coli Ceftriaxone HOMER <=0.25 ug/ml: Susceptible Escherichia coli Cefepime HOMER <=0.12 ug/ml: Susceptible Escherichia coli Meropenem HOMER <=0.25 ug/ml: Susceptible Escherichia coli Amikacin HOMER 2 ug/ml: Susceptible Escherichia coli Gentamicin HOMER <=1 ug/ml: Susceptible Escherichia coli Ciprofloxacin HOMER <=0.06 ug/ml: Susceptible Escherichia coli Levofloxacin HOMER <=0.12 ug/ml: Susceptible Escherichia coli Nitrofurantoin HOMER <=16 ug/ml: Susceptible Escherichia coli Trimethoprim/Sulfamethoxazole HOMER <=20 ug/ml: Susceptible us Mavis Mckeon MD LAB MICROBIOLOGY - G ENERAL ORDERABLES Final Result [facility] [address] [place] [address], documented in this encounter Visit Diagnoses Diagnosis Dysuria documented in this encounter Care Teams Hospice Team Lead Relationship Specialty Start Date End Date Keny Matias MD [address] [place] [address] Dr Sandoval [place] PCP - General 01/11/22 documented as of this encounter
== END 2024-10-07 14:00 | disposition home or self-care (01) ==
LOC: HO.HMCFM 12:54
PROVIDERS: PCP Family Medicine; Visit Provider Family Medicine
DX: Z00.00 Encounter for general adult medical examination without abnormal findings (principal); R06.02 Shortness of breath; R19.6 Halitosis; E78.00 Pure hypercholesterolemia, unspecified; I10 Essential (primary) hypertension; K21.9 Gastro-esophageal reflux disease without esophagitis; K44.9 Diaphragmatic hernia without obstruction or gangrene; Z12.11 Encounter for screening for malignant neoplasm of colon; Z12.31 Encounter for screening mammogram for malignant neoplasm of breast

== ENCOUNTER → 2024-10-07 12:53 | Outpatient (BNVA) | payer OTHER, SELFPAY | PROVIDERS: PCP Family Medicine; Visit Provider Family Medicine | DX: Z00.00 Encounter for general adult medical examination without abnormal findings (principal); E78.00 Pure hypercholesterolemia, unspecified; I10 Essential (primary) hypertension; R06.02 Shortness of breath; K21.9 Gastro-esophageal reflux disease without esophagitis; K44.9 Diaphragmatic hernia without obstruction or gangrene; R19.6 Halitosis | CPT/HCPCS: 96127 ==

== ENCOUNTER 2024-10-08 11:30 | Outpatient (REF) | payer OTHER, SELFPAY ==
--- OUTSIDE RECORDS SUMMARY | 2024-10-08 12:45 | XMS_ITS | Encounter Summary ---
Author Organization [facility] Address [address] [place] [address] Care Team Providers Care Bag Liner Name Role Phone Keny Matias MD Primary Care Provider [phone]- [phone] Encounter Details Date Type Department Care Team (Late st Contact Info) Description 07/23/2024 Lab Requisition [facility] - Main Lab [address] [facility] [place] [phone] Mavis Mckeon MD [address] [facility] [address] [place] [id number] Dysuria Social History Tobacco Use Types Packs/Day [...] Escherichia coli(A) HOMER 07/24/2024 9:35 AM EDT [facility] Other Urine specimen from urethra [...] MICROBIOLOGY - G ENERAL ORDERABLES Final Result [facility] [address] [place] [address], documented in this encounter Visit Diagnoses Diagnosis Dysuria documented in this encounter Care Teams Bag Liner Relationship Specialty Start Date End Date Keny Matias MD [address] [place] [address] Dr Sandoval [place] PCP - General 01/11/22 documented as of this encounter
== END 2024-10-08 11:31 | disposition home or self-care (01) ==
LOC: HO.LNP 11:30
PROVIDERS: Visit Provider Family Medicine
DX: K21.9 Gastro-esophageal reflux disease without esophagitis (principal); R19.6 Halitosis
CPT/HCPCS: 87338

== ENCOUNTER 2024-12-22 08:37 | Outpatient (REF) | payer OTHER, SELFPAY ==
--- OUTSIDE RECORDS SUMMARY | 2024-12-22 09:58 | XMS_ITS | Encounter Summary ---
Author Organization [facility] Address [address] [place] [address] Care Team Providers Care Assurance Senior Name Role Phone Keny Matias MD Primary Care Provider [phone]- [phone] Encounter Details Date Type Department Care Team (Late st Contact Info) Description 07/23/2024 Lab Requisition [facility] - Main Lab [address] [facility] [place] [phone] Mavis Mckeon MD [address] [facility] [address] [place] [address] Dysuria Social History Tobacco Use Types Packs/Day [...] Escherichia coli(A) HOMER 07/24/2024 9:35 AM EDT [facility] Other Urine specimen from urethra / [...] MICROBIOLOGY - G ENERAL ORDERABLES Final Result [facility] [address] [place] [address], documented in this encounter Visit Diagnoses Diagnosis Dysuria documented in this encounter Care Teams Assurance Senior Relationship Specialty Start Date End Date Keny Matias MD [address] [place] [address] Dr Sandoval [place] PCP - General 01/11/22 documented as of this encounter
--- OUTSIDE RECORDS SUMMARY | 2024-12-22 09:58 | XMS_ITS | Encounter Summary ---
Author Organization [facility] Address [address] [place] [address] Care Team Providers Care Funds Transfer Clerk Name Role Phone Keny Matias MD Primary Care Provider Encounter Details Date Type Department Care Team (Late st Contact Info) Description 04/02/[address] [facility] - Main Lab [address] [facility] [phone] Mavis Mckeon MD [address] [address] Frequency of micturition Social History Tobacco Use Types Packs/Day Years [...] Procedure Name Priority Date/Time Associated Diagnosis Comments CULTURE URINE Routine 04/02/2024 4:27 PM EST Frequency of micturition documented in this encounter Results * Culture urine (04/02/2024 4:27 PM EST) Culture, Urine <10,000 CFU/mL gram negative bacilli, insignificant count, no further workup 04/03/2024 2:31 PM EST [facility] Urine Urine specimen obtained by clean catch procedure / Unknown 04/02/2024 4:27 PM EST 04/02/2024 5:54 PM EST us Mavis Mckeon MD LAB MICROBIOLOGY - G ENERAL ORDERABLES Final Result [facility] [address] [place] [address], documented in this encounter Visit Diagnoses Diagnosis Frequency of micturition Urinary frequency documented in this encounter Care Teams Funds Transfer Clerk Relationship Specialty Start Date End Date Keny Matias MD [address] [place] [address] Dr Jaime [place] PCP - General 01/11/22 documented as of this encounter
--- OUTSIDE RECORDS SUMMARY | 2024-12-22 09:58 | XMS_ITS | Clinical Summary ---
Author Organization [facility] Address [address] [place] [address] Phone Care Team Providers Care System Support Analyst Name Role Phone Keny Matias MD Primary Care Provider [phone]- [phone] Allergies Active Allergy Reactions Criticality Noted Date Comments Latex Hives Medium 03/26/2024 PATIENT STATES ITS LATEX BANDAGES THAT CAUSE LOCALIZED RASH TO AREA Penicillins Rash Medium 01/14/2022 Medications hydroCHLOROthiaz shi (HYDRODIURIL) 25 mg tablet Take 1 tablet (25 mg total) by mouth 1 (one) time each day. Active omeprazole OTC (PriLOSEC OTC) 20 mg EC tablet Take 1 tablet (20 mg total) by mouth 1 (one) time each day. Active LORazepam (ATIVAN) 0.5 mg tablet Take 1 tablet (0.5 mg total) by mouth every 6 (six) hours if needed. Active B complex tablet Take 1 tablet by mouth 1 (one) time each day. Active cholecalciferol (VITAMIN D-3) 25 mcg (1,000 unit) tablet Take by mouth 1 (one) time each day. Active magnesium oxide (MAG-OX) 400 mg magnesium tablet Take by mouth 1 (one) time each day. Active Surgical History Surgery Date Site/Laterality Comments OTHER SURGICAL HISTORY N/A PROCEDURE: HYSTEROSCOPY, SURGICAL/ABLATION COLONOSCOPY ESOPHAGOGASTRODUODENOSCOPY ESOPHAGEAL DILATION PATIENT BELIEVES IT WAS COMPLETED DURING EGD STEREOTACTIC CORE BIOPSY Medical History Medical History Date Comments Irritable bowel syndrome without diarrhea DX:Irritable bowel syndrome without diarrhea GERD (gastroesophageal reflux disease) DX:GERD (gastroesophageal reflux disease) Hiatal hernia DX:Hiatal hernia Hyperlipidemia DX:Hyperlipidemi a Anxiety Colon polyp Family History Medical History Relation Name Comments Heart attack Father Breast cancer Mother Relation Name Status Comments Father Mother Social History Tobacco Use Types Packs/Day Years Used Date Smoking Tobacco: Former Cigarettes 0.5 10 1 1989 Passive Smoke Exposure: Past Tobacco Cessation:Counseling Given: Not Answered Alcohol Use Standard Drinks/Week Comments Yes 2 [...] PM EST Sexual Orientation Not on file Obstetrics History Para Term AB IAB SAB Ectopic Multiple Livin g Live Births 2 Last Filed Vital Signs Vital Sign Reading Time Taken Comments Blood Pressure 120/68 04/01/2024 10:50 AM EST Pulse 70 04/01/2024 10:50 AM EST Temperature 36.3 C (97.3 F) 04/01/2024 9:45 AM EST Respiratory Rate 12 04/01/2024 10:50 AM EST Oxygen Saturation 95% 04/01/2024 10:50 AM EST Inhaled Oxygen Concentration - - Weight 86.2 kg (190 lb) 08/11/2024 7:33 AM EDT Height 170.2 cm (5' 7 ) 08/11/2024 7:33 AM EDT Body Mass Index 29.76 08/11/2024 7:33 AM EDT Plan of Treatment Health Maintenance Due Date Last Done Comments Cervical Cancer Screening: Pap Smear 1982 Pneumococcal Vaccine: 50+ Years (1 of 1 - PCV) 2011 HIV Screening 03/17/2022 Hepatitis C Screening 03/17/2022 Social Influencers of Health Screening 03/17/2022 Depression Screening 04/14/2024 COVID-19 Vaccine ( season) 2024 05/22/2020, 04/26/2020 Influenza Vaccine (#1) 2024 Breast Cancer Screening 08/11/2026 08/12/19, 08/05/2023, 07/26/2022, Additional history exists DTaP,Tdap,and Td Vaccines (2 - Td or Tdap) 10/10/2029 10/11/2019 Colorectal Cancer Screening: Colonoscopy 04/01/2034 04/01/2024 RSV Immunization Adult Patients (1 - 1-dose 75+ series) 01/31/2036 Zoster Vaccines Completed 03/19/2022, 01/21/2022 HIB Vaccines Aged Out No longer eligi ble based on patient's age to complete this topic HPV Vaccines Aged Out No longer eligi ble based on patient's age to complete this topic Hepatitis A Vaccines Aged Out No long er eligible based on patient's age to complete this topic Hepatitis B Vaccines Aged Out No long er eligible based on patient's age to complete this topic IPV Vaccines Aged Out No longer eligi ble based on patient's age to complete this topic MMR Vaccines Aged Out No longer eligi ble based on patient's age to complete this topic Meningococcal ACWY Vaccine Aged Out N o longer eligible based on patient's age to complete this topic Meningococcal B Vaccine Aged Out No l onger eligible based on patient's age to complete this topic RSV Immunization Patients Under 20 months Aged Out No longer eligible based on patient's age to complete this topic Varicella Vaccines Aged Out No longer eligible based on patient's age to complete this topic Procedures Procedure Name Priority Date/Time Associated Diagnosis Comments MG MAMMO DIGITAL SCREENING W JOCE BILAT Routine 08/11/2024 7:53 AM EDT Encounter for screening mammogram for breast cancer COLONOSCOPY Routine 04/01/2024 10:29 AM EST Personal history of colon polyps, unspecified from Last 3 Months or Most Recently Relevant to Health Maintenance Results * MG Mammo Digital Screening w Joce bilat (08/11/2024 7:53 AM EDT) Anatomical Region Laterality Modality Breast Bilateral Mammography 08/11/2024 8:07 AM EDT Impressions 08/11/2024 8:09 AM EDT No evidence of breast malignancy. BI-RADS CATEGORY: 2 - BENIGN RECOMMENDATION: Screening bilateral mammogram is recommended in 1 year. Mammo Location: [facility], [address] [place] [address], [id number], . -------- FINAL REPORT -------- Dictated By: Ese Bahena Dictated Date: 08/11/2024 08:07 ET Assigned Physician: Ese Bahena Reviewed and Electronically Signed By: Ese Bahena Signed Date: 08/11/2024 08:09 ET Workstation ID: [id number] Transcribed By: Self Edit Transcribed Date: 08/11/2024 08:07 ET Narrative 08/11/2024 8:09 AM EDT CLINICAL: 64 years old, Female, routine annual exam. COMPARISON: 08/05/2023, 07/23/2022, 07/17/2021, 06/15/2020 and 03/26/2019 TECHNIQUE: Bilateral MLO and CC views were obtained digitally with 3-D mammogram (digital breast tomosynthesis). Computer-aided detection was utilized in evaluation of this exam (CAD). FINDINGS: There is no evidence of suspicious mass or architectural distortion. No worrisome calcifications are evident. Circumscribed oval mass in the right lower inner breast has decreased in size and can be considered benign. BREAST DENSITY: B - There are scattered areas of fibroglandular density. Procedure Note Ese Bahena MD - 08/11/2024 CLINICAL: 64 years old, Female, routine annual exam. COMPARISON: 08/05/2023, 07/23/2022, 07/17/2021, 06/15/2020 and 03/26/2019 TECHNIQUE: Bilateral MLO and CC views were obtained digitally with 3-Dmammogram (digital breast tomosynthesis). Computer-aided detection wasutilized in evaluation of this exam (CAD). FINDINGS: There is no evidence of suspicious mass or architectural distortion. Noworrisome calcifications are evident. Circumscribed oval mass in theright lower inner breast has decreased in size and can be consideredbenign. BREAST DENSITY: B - There are scattered areas of fibroglandular density. IMPRESSION: No evidence of breast malignancy. BI-RADS CATEGORY: 2 - BENIGN RECOMMENDATION: Screening bilateral mammogram is recommended in 1 year. Mammo Location: [facility], [address] [place] [address], [id number], . -------- FINAL REPORT -------- Dictated By: Ese Bahena Dictated Date: 08/11/2024 08:07 ET Assigned Physician: Ese Bahena Reviewed and Electronically Signed By: Ese Bahena Signed Date: 08/11/2024 08:09 ET Workstation ID: [id number] Transcribed By: Self Edit Transcribed Date: 08/11/2024 08:07 ET us Self Referral Sppl IMG BI PROCEDURES Final Resul t * COLONOSCOPY Anesthesia - MAC; [facility] ENDOSCOPY (04/01/2024 10:29 AM EST) Anatomical Region Laterality Modality Endoscopy 04/01/2024 10:1 0 AM EST Impressions 04/01/2024 10:31 AM EST - Diverticulosis in the entire examined colon. - Non-bleeding internal hemorrhoids. - The examination was otherwise normal on direct and retroflexion views. - No specimens collected. Recommendation: - Discharge patient to home. - High fiber diet. - Continue present medications. - Repeat colonoscopy in 10 years for surveillance. - Return to GI office PRN. Narrative 04/01/2024 10:31 AM EST [facility] GI Patient Name: Lelo Wang Procedure Date: 04/01/2024 10:10 AM Date of : 1960 Age: 64 Room: ROOM 15 Gender: Female Note Status: Finalized Attending MD: Joey Greene MD, Procedure Date No Time: 04/01/2024 Procedure: Colonoscopy Indications: High risk colon cancer surveillance: Personal history of colonic polyps Providers: Joey Greene MD Referring MD: Joey Greene MD Medicines: Monitored Anesthesia Care Complications: No immediate complications. Estimated Blood Loss: Estimated blood loss: none. Procedure: Pre-Anesthesia Assessment: - ASA Grade Assessment: II - A patient with mild systemic disease. - After reviewing the risks and benefits, the patient was deemed in satisfactory condition to undergo the procedure. After I obtained informed consent, the scope was passed under direct vision. Throughout the procedure, the patient's blood pressure, pulse, and oxygen saturations were monitored continuously.The Colonoscope was introduced through the anus and advanced to the cecum, identified by appendiceal orifice and ileocecal valve. The colonoscopy was performed without difficulty. The patient tolerated the procedure well. The quality of the bowel preparation was good. Findings: Scattered small and large-mouthed diverticula were found in the entire colon. Non-bleeding internal hemorrhoids were found during retroflexion. The hemorrhoids were small. The exam was otherwise without abnormality on direct and retroflexion views. Procedure Code(s): --- Professional --- 12942, Colonoscopy, flexible; diagnostic, including collection of specimen(s) by brushing or washing, when performed (separate procedure) Diagnosis Code(s): --- Professional --- Z86.010, Personal history of colonic polyps K64.8, Other hemorrhoids K57.30, Diverticulosis of large intestine without perforation or abscess without bleeding CPT copyright 2021 [employer]. All rights reserved. The codes documented in this report are preliminary and upon crate builder review may be revised to meet current compliance requirements. Joey Greene MD 04/01/2024 10:30:56 AM This report has been signed electronically.Joey Greene MD Number of Addenda: 0 Note Initiated On: 04/01/2024 10:10 AM Scope In: Scope Out: Endoscopy Department at [facility] - [address] [place] [phone] Procedure Note Joey Greene MD - 04/01/2024 [facility] GI Patient Name: Lelo Wang Procedure Date: 04/01/2024 10:10 AM Date of : 1960 Age: 64 Room: ROOM 15 Gender: Female Note Status: Finalized Attending MD: Joey Greene MD, Procedure Date No Time: 04/01/2024 Procedure: Colonoscopy Indications: High risk colon cancer surveillance: Personalhistory of colonic polyps Providers: Joey Greene MD Referring MD: Joey Greene MD Medicines: Monitored Anesthesia Care Complications: No immediate complications. Estimated Blood Loss: Estimated blood loss: none. Procedure: Pre-Anesthesia Assessment: - ASA Grade Assessment: II - A patient with mild systemic disease. - After reviewing the risks and benefits, thepatient was deemed in satisfactory condition to undergo the procedure. After I obtained informed consent, the scope was passed under direct vision. Throughout theprocedure, the patient's blood pressure, pulse, and oxygen saturations were monitored continuously.The Colonoscope was introduced through the anus and advanced to the cecum, identified by appendiceal orifice and ileocecal valve. The colonoscopy was performed without difficulty. The patient tolerated the procedure well. The quality of the bowel preparation was good. Findings: Scattered small and large-mouthed diverticula were found in the entire colon. Non-bleeding internal hemorrhoids were found during retroflexion. The hemorrhoids were small. The exam was otherwise without abnormality ondirect and retroflexion views. Procedure Code(s): --- Professional --- 52873, Colonoscopy, flexible; diagnostic, including collection of specimen(s) by brushing or washing,when performed (separate procedure) Diagnosis Code(s): --- Professional --- Z86.010, Personal history of colonic polyps K64.8, Other hemorrhoids K57.30, Diverticulosis of large intestine without perforation or abscess without bleeding CPT copyright 2020 [employer]. All rights reserved. The codes documented in this report are preliminary and upon crate builder reviewmay be revised to meet current compliance requirements. Joey Greene MD 04/01/2024 10:30:56 AM This report has been signed electronically.Joey Greene MD Number of Addenda: 0 Note Initiated On: 04/01/2024 10:10 AM Scope In: Scope Out: Endoscopy Department at [facility] - [address] [place] [phone] IMPRESSION: - Diverticulosis in the entire examined colon. - Non-bleeding internal hemorrhoids. - The examination was otherwise normal on directand retroflexion views. - No specimens collected. Recommendation: - Discharge patient to home. - High fiber diet. - Continue present medications. - Repeat colonoscopy in 10 years forsurveillance. - Return to GI office PRN. Joey Greene MD GI~PROCEDURE ORDERABLES Final Result from Last 3 Months or Most Recently Relevant to Health Maintenance Insurance [facility] Care Teams System Support Analyst Relationship Specialty Start Date End Date Keny Matias MD [address] [place] [address] Dr Jaime [place] PCP - General 01/11/22
[2024-12-22 11:52] LABS: Appearance Urine Cloudy; Glucose Urine UA Negative (Negative); PH 6.0 (5.0-9.0); Specific Gravity - Urine 1.025 (1.005-1.025); UMIC TRIGGER UA YES
[2024-12-22 12:28] LABS: Other Crystals Urine Present
[2024-12-22 12:51] LABS: Alanine Aminotransferase 19 U/L (0-31); Albumin Level 4.4 g/dL (3.5-5.0); Alkaline Phosphatase 70 U/L (39-117); Anion Gap 12 (12-20); Aspartate Amino Transferase 25 U/L (5-31); Blood Urea Nitrogen 14 mg/dL (9-16); Calcium 9.4 mg/dL (8.4-10.2); Carbon Dioxide 27 mmol/L (22-29); Chloride 108 mmol/L (96-108); Estimated Glomerular Filt Rate > 60; Potassium 4.4 mmol/L (3.3-5.1); Sodium 143 mmol/L (135-145); Total Protein 7.0 g/dL (6.5-8.0)
== END 2024-12-22 08:38 | disposition home or self-care (01) ==
LOC: HO.WFDLDS 08:37
PROVIDERS: Visit Provider Family Medicine
DX: Z00.00 Encounter for general adult medical examination without abnormal findings (principal); E78.00 Pure hypercholesterolemia, unspecified
CPT/HCPCS: 36415; 80053; 81001; 81003; 83721

== ENCOUNTER 2024-12-24 21:47 | Emergency (ER) | payer OTHER, SELFPAY ==
--- NOTE | ~2024-12-24 | XR_ITS ---
CLINICAL HISTORY: CP 1 view chest x-ray Comparison: None provided Findings: The lungs are clear. Normal size heart. No acute fracture. IMPRESSION: 1. No acute findings. This document has been electronically signed by: Cesar Saunders MD on 12/24/2024 23:21:50
[2024-12-24 21:49] VITALS: BP 157/74; PULSE 76; RESP 18; TEMP 36.5; O2SAT 95; BMI 29.8
--- NOTE | 2024-12-24 21:53 | ECG_ITS ---
Test Reason : chest pain Blood Pressure : */* mmHG Vent. Rate : 66 BPM Atrial Rate : 66 BPM P-R Int : 144 ms QRS Dur : 86 ms QT Int : 430 ms P-R-T Axes : 47 -17 35 degrees QTcB Int : 450 ms Normal sinus rhythm Normal ECG When compared with ECG of 15-Jun-2019 12:17, No significant change was found Referred By: Generic ED Physician Electronically Signed By: TAVO NEWTON MD
[2024-12-24 22:12] LABS: MANUAL DIFF FLAG NO
[2024-12-24 22:13] LABS: Hematocrit 39.3 % (37.0-47.0); Hemoglobin 13.5 g/dl (12.0-16.0); Imm Gran Abs Auto 0.01 X10*3/uL (0.00-0.03); Imm Gran Pct Auto 0.2 % (0.0-0.4); Lymphocytes Absolute Auto 2.6 X10*3/uL (1.2-4.9); Mean Corpuscular HGB Conc 34.4 g/dl (31.0-35.0); Mean Corpuscular Hemoglobin 27.8 pg (27.0-33.0); Mean Corpuscular Volume 81.0 fL (80.0-98.0); NRBC Abs Auto 0.000 X10*3/uL (0.0-0.012); NRBC Pct Auto 0.0 /100WBC (0.0-0.2); Platelet Count 195 X10*3/uL (160-400); Red Blood Count 4.85 X10*6/uL (4.20-5.50); White Blood Count 5.0 X10*3/uL (4.8-10.8)
--- OUTSIDE RECORDS SUMMARY | 2024-12-24 22:13 | XMS_ITS | Encounter Summary ---
Author Organization [facility] Address [address] [place] [address] Care Team Providers Care Manager Party Name Role Phone Keny Matias MD Primary Care Provider [phone]- [phone] Encounter Details Date Type Department Care Team (Late st Contact Info) Description 07/23/2024 Lab Requisition [facility] - Main Lab [address] [facility] [place] [phone] Mavis Mckeon MD [address] [facility] [place] [address] [place] [id number] Dysuria Social History Tobacco Use Types Packs/Day [...] Escherichia coli(A) HOMER 07/24/2024 9:35 AM EDT [facility] Other Urine specimen from urethra [...] MICROBIOLOGY - G ENERAL ORDERABLES Final Result [facility] [address] [place] [address], documented in this encounter Visit Diagnoses Diagnosis Dysuria documented in this encounter Care Teams Manager Party Relationship Specialty Start Date End Date Keny Matias MD [address] [place] [address] Dr Sandoval [place] PCP - General 01/11/22 documented as of this encounter
--- OUTSIDE RECORDS SUMMARY | 2024-12-24 22:13 | XMS_ITS | Encounter Summary ---
Author Organization [facility] Address [address] [place] [address] Care Team Providers Care Direct Sales Representative Name Role Phone Keny Matias MD Primary Care Provider [phone] Encounter Details Date Type Department Care Team (Late st Contact Info) Description 04/02/2024 Lab Requisition [facility] - Main Lab [address] [facility] [place] [phone] Mavis Mckeon MD [address] [id number] Frequency of micturition Social History Tobacco Use [...] no further workup 04/03/2024 2:31 PM EST [facility] Urine Urine specimen obtained by clean catch procedure / Unknown 04/02/2024 4:27 PM EST 04/02/2024 5:54 PM EST us Mavis Mckeon MD LAB MICROBIOLOGY - G ENERAL ORDERABLES Final Result [facility] [address] [place] [address], documented in this encounter Visit Diagnoses Diagnosis Frequency of micturition Urinary frequency documented in this encounter Care Teams Direct Sales Representative Relationship Specialty Start Date End Date Keny Matias MD [address] [place] [address] Dr Jaime [place] PCP - General 01/11/22 documented as of this encounter
--- OUTSIDE RECORDS SUMMARY | 2024-12-24 22:13 | XMS_ITS | Clinical Summary ---
Author Organization [facility] Address [address] [place] [address] Phone Care Team Providers Care Activity Manager Name Role Phone Keny Matias MD Primary Care Provider [phone]- [phone] Allergies Active Allergy Reactions Criticality Noted Date [...] year. Mammo Location: [facility], [address] [place] [address], [phone], . -------- FINAL REPORT -------- Dictated By: Ese Bahena Dictated Date: 08/11/2024 08:07 ET Assigned Physician: Ese Bahena Reviewed and Electronically Signed By: Ese Bahena Signed Date: 08/11/2024 08:09 ET Workstation ID: [id number] Transcribed By: Self Edit Transcribed Date: 08/11/2024 [...] year. Mammo Location: [facility], [address] [place] [address], [address], . -------- FINAL REPORT -------- Dictated By: sEe Bahena Dictated Date: 08/11/2024 08:07 ET Assigned Physician: Ese Bahena Reviewed and Electronically Signed By: Ese Bahena Signed Date: 08/11/2024 08:09 ET Workstation ID: [id number] Transcribed By: Self Edit Transcribed Date: 08/11/2024 08:07 ET us Self Referral Sppl IMG BI PROCEDURES Final Resul t * COLONOSCOPY Anesthesia - MAC; [facility] ENDOSCOPY (04/01/2024 10:29 AM EST) Anatomical [...] office PRN. Narrative 04/01/2024 10:31 AM EST [facility] GI Patient Name: Lelo Wang Procedure [...] retroflexion views. Procedure Code(s): --- Professional --- 88195, Colonoscopy, flexible; diagnostic, including collection of specimen(s) by brushing or washing, when performed (separate procedure) Diagnosis Code(s): --- Professional --- Z86.010, Personal history of colonic polyps K64.8, Other hemorrhoids K57.30, Diverticulosis of large intestine without perforation or abscess without bleeding CPT copyright 2021 [employer]. All rights reserved. The codes documented in this report are preliminary and upon seed yeast operator review may be revised to meet current compliance requirements. Joey Greene MD 04/01/2024 10:30:56 AM This report has been signed electronically.Joey Greene MD Number of Addenda: 0 Note Initiated On: 04/01/2024 10:10 AM Scope In: Scope Out: Endoscopy Department at [facility] - [address] [place] [phone] Procedure Note Joey Greene MD - 04/01/2024 [facility] GI Patient Name: Lelo Wang Procedure [...] retroflexion views. Procedure Code(s): --- Professional --- 96308, Colonoscopy, flexible; diagnostic, including collection of specimen(s) by brushing or washing,when performed (separate procedure) Diagnosis Code(s): --- Professional --- Z86.010, Personal history of colonic polyps K64.8, Other hemorrhoids K57.30, Diverticulosis of large intestine without perforation or abscess without bleeding CPT copyright 2020 [employer]. All rights reserved. The codes documented in this report are preliminary and upon seed yeast operator reviewmay be revised to meet current compliance requirements. Joey Greene MD 04/01/2024 10:30:56 AM This report has been signed electronically.Joey Greene MD Number of Addenda: 0 Note Initiated On: 04/01/2024 10:10 AM Scope In: Scope Out: Endoscopy Department at [facility] - [address] [place] [phone] IMPRESSION: - Diverticulosis in the entire examined [...] Most Recently Relevant to Health Maintenance Insurance [facility] Care Teams Activity Manager Relationship Specialty Start Date End Date Keny Matias MD [address] [place] [address] Dr Jaime [place] PCP - General 01/11/22
[2024-12-24 22:27] LABS: Alanine Aminotransferase 16 U/L (0-31); Albumin Level 4.4 g/dL (3.5-5.0); Alkaline Phosphatase 68 U/L (39-117); Anion Gap 12 (12-20); Aspartate Amino Transferase 22 U/L (5-31); Blood Urea Nitrogen 15 mg/dL (9-16); Calcium 9.4 mg/dL (8.4-10.2); Carbon Dioxide 27 mmol/L (22-29); Chloride 106 mmol/L (96-108); Creatinine Clr Calc Pharmacy 72.9; Estimated Glomerular Filt Rate > 60; Magnesium 2.1 mg/dL (1.6-2.6); Potassium 3.9 mmol/L (3.3-5.1); Sodium 141 mmol/L (135-145); Total Protein 6.9 g/dL (6.5-8.0)
[2024-12-24 22:37] LABS: Troponin-I High Sensitivity < 2.7 ng/L (<3.5-17.0)
--- NOTE | 2024-12-24 22:41 | ED.CHESTPAIN ---
HPI - Chest Pain General Chief Complaint: Chest Pain Stated Complaint: Chest pain Time Seen by Provider: 12/24/24 22:28 Source: patient and family ( ) Mode of arrival: ambulatory Limitations: no limitations History of Present Illness ED Provider: DR. Wheat HPI narrative: 64-year-old female history of hypertension, high cholesterol presented with mid chest pain radiates to the right side of the chest under the right breast area started around 20:30, pain has been constant since it started patient with history of anxiety that she takes prescribed Ativan for anxiety patient took 1 pill of Ativan to help her anxiety level, patient with history of GERD and hiatal hernia. No recent travel, no lower extremity swelling or tenderness, no prolonged immobilization. No chest rash, patient received shingle vaccination this year with low concern of shingles. Related Data Home Medications ?Medication ?Instructions ?Recorded ?Confirmed omeprazole 20 mg capsule,delayed 20 mg PO DAILY 08/23/22 10/07/24 release Previous Rx's ?Medication ?Instructions ?Recorded hydrochlorothiazide 12.5 mg tablet 12.5 mg PO DAILY 90 days #90 tabs 05/11/24 atorvastatin 20 mg tablet (Lipitor) 20 mg PO BEDTIME 90 days #90 tabs 10/07/24 lorazepam 0.5 mg tablet 1 mg (2 x 0.5 mg) PO DAILY PRN 12/23/24 anxiety #28 tabs Allergies Allergy/AdvReac Type Severity Reaction Status Date / Time Sulfa (Sulfonamide Allergy Unknown RASH Verified 12/24/24 21:51 Antibiotics) (SULFA (SULFONAMIDE ANTIBIOTICS)) Penicillins Allergy rash Verified 12/24/24 21:51 sulfacet Allergy Unknown Rash Uncoded 07/11/22 13:43 Sulfacet-R Allergy Unknown rash Uncoded 07/11/22 13:43 Review of Systems Review of Systems: All other systems are reviewed and are negative Constitutional: Reports as per HPI and Reports no additional constitutional complaints Eyes: Reports as per HPI and Reports no additional eye complaints Reports system reviewed and no additional complaints, except as documented Cardiovascular: Reports as per HPI and Reports no additional cardiovascular complaints Respiratory: Reports as per HPI and Reports no additional respiratory complaints Gastrointestinal: Reports as per HPI and Reports no additional gastrointestinal complaints Genitourinary: Reports no additional female genitourinary complaints Musculoskeletal: Reports no additional musculoskeletal complaints Skin/Breast: Reports system reviewed and no additional complaints, except as docu Psychiatric: Reports no additional psychiatric complaints Endocrine: Reports no additional endocrine complaints Hematologic/Lymphatic: Reports no additional hematologic/lymphatic complaints Allergic/Immunologic: Reports no additional allergic/immunologic complaints Reports system reviewed and no additional complaints, except as documented and Reports Abnormal speech present [facility] Past Medical History Medical History No pertinent past medical history Surgical History No pertinent past surgical history Social History Social History Household Members: Spouse and Family Housing: House Are you a primary patient centered care specialist to a significant other at home: No Do you presently have visiting nurse or other home services: No Alcohol intake: current Alcohol intake frequency: holidays/special occasions only Alcohol type: hard liquor and other Patient Tobacco Use Status: Former Tobacco user e-Cigarette/Vaping Use: Never Used Second Hand Smoke Exposure: No Advance Directives: No Advance Directives Information Provided: No Do you have a plan to hurt others: No Plan service: No Current occupational status: employed 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 Blood pressure elevated. Heart rate normal. Respiratory rate normal. Temperature normal. Oxygen saturation normal. Appearance: Alert. Oriented X3. No acute distress. Head: Normal external exam. Normocephalic. Atraumatic. No Richardson signs noted. No raccoon eyes noted Eyes: PERRLA. EOMI. Conjunctiva and sclera normal. Eyelids normal. ENT: TM's Normal. Pharynx normal. Uvula midline. Moist mucous membranes. No trismus noted. No drooling noted. No muffled voice noted. Neck: Normal inspection. Neck supple. FROM. No adenopathy. Thyroid Normal. No meningeal signs. No neck mass noted. CVS: Normal heart rate and rhythm. Heart sound normal. No murmurs noted. Pulses normal throughout. Respiratory: No respiratory distress. Painless inspiration. Breath sounds normal. No wheezes/rales/rhonchi noted. Chest nontender. No rashes or vesicle, no redness, no hotness in the chest area or under the breast. No accessory muscle usage noted or decreased air movement noted. Abdomen: Soft and nontender. Bowel sounds normal in all 4 quadrants. No distention noted. No organomegaly noted. No visible injury noted. Back: No CVA tenderness. Full range of motion noted. Skin: Skin warm and dry. Normal skin color. Normal skin turgor. No rashes/lesions/lacerations noted. Extremities: No lower extremity edema. Extremities exhibit normal range of motion. Extremities nontender. Neuro: Oriented X 3. Cranial nerve exam: II-XII are grossly intact No motor deficit. No sensory deficit. Reflexes normal. Course Reevaluation(s) Reevaluation #1: 64-year-old female with chest pain since 12/11 last night at low risk of DVT, negative troponin x2, EKG is unchanged from prior, at low risk for ACS, patient's symptoms is likely secondary to Acid reflux and triggered with patient's anxiety. Time: 02:14 Medications Administered Discontinued Medications Generic Name Dose Route Start Last Admin Trade Name Freq PRN Reason Stop Dose Admin Al Hydroxide/Mg Hydroxide 30 ml 12/24/24 22:47 12/24/24 23:42 Magnesium Hydrox/Alum Hydrox 30 Ml Oral.Susp PO 12/24/24 22:48 Not Given ONCE ONE Omeprazole 40 mg 12/24/24 22:47 12/24/24 23:37 Omeprazole/Na Bicarb Oral Susp 20 Mg/10 Ml Ud Cup PO 12/24/24 22:48 Not Given ONCE ONE Omeprazole 40 mg 12/24/24 23:33 12/24/24 23:42 Omeprazole 40 Mg Capsule. PO 12/24/24 23:34 Not Given ONCE ONE Medical Decision Making Differential Diagnosis Differential Diagnoses: The differential diagnosis associated with the presentation includes ( ACS, pulmonary embolism, pneumonia, pneumothorax, pleural effusion, shingles, cellulitis, costochondritis, chest wall pain, GERD, acid reflux.) Admission/Observation Consideration of admission/observation: Escalation of care including admission/observation considered Lab Data MDM Lab Attestation statement: I reviewed the patient's lab results. 12/24/24 22:08 12/24/24 22:08 Labs: Lab Results 12/24/24 12/24/24 12/25/24 Range/Units 22:08 23:26 01:39 WBC 5.0 (4.8-10.8) X10*3/uL RBC 4.85 (4.20-5.50) X10*6/uL Hgb 13.5 (12.0-16.0) g/dl Hct 39.3 (37.0-47.0) % MCV 81.0 (80.0-98.0) fL MCH 27.8 (27.0-33.0) pg MCHC 34.4 (31.0-35.0) g/dl RDW 13.0 (11.0-16.0) % Plt Count 195 (160-400) X10*3/uL MPV 9.2 L (9.4-12.3) fL Immature Gran % (Auto) 0.2 (0.0-0.4) % Neut % (Auto) 35.0 L (45-73) % Lymph % (Auto) 52.4 H (20-40) % Cecil % (Auto) 9.2 (2-11) % Eos % (Auto) 2.8 (0-4) % Baso % (Auto) 0.4 (0-2) % Lymph # (Auto) 2.6 (1.2-4.9) X10*3/uL Cecil # (Auto) 0.5 (0.1-1.2) X10*3/uL Eos # (Auto) 0.1 (0.0-0.4) X10*3/uL Baso # (Auto) 0.0 (0.0-0.2) X10*3/uL Abs Immat Gran (auto) 0.01 (0.00-0.03) X10*3/uL Absolute Neuts (auto) 1.8 L (2.0-8.3) x10*3/uL Absolute Nucleated RBC 0.000 (0.0-0.012) X10*3/uL Nucleated RBC % (auto) 0.0 (0.0-0.2) /100WBC D-Dimer High Sensitivty < 150 NG/ML Sodium 141 (135-145) mmol/L Potassium 3.9 (3.3-5.1) mmol/L Chloride 106 (96-108) mmol/L Carbon Dioxide 27 (22-29) mmol/L Anion Gap 12 (12-20) BUN 15 (9-16) mg/dL Creatinine 0.92 (0.5-1.4) mg/dL Estim Creat Clear Calc 72.9 Estimated GFR > 60 Random Glucose 117 H (60-115) mg/dL Calcium 9.4 (8.4-10.2) mg/dL Magnesium 2.1 (1.6-2.6) mg/dL Total Bilirubin 0.7 (0.0-1.0) mg/dL AST 22 (5-31) U/L ALT 16 (0-31) U/L Alkaline Phosphatase 68 (39-117) U/L Troponin I High Sens < 2.7 < 2.7 (<3.5-17.0) ng/L Total Protein 6.9 (6.5-8.0) g/dL Albumin 4.4 (3.5-5.0) g/dL Independent Interpretation I performed an independent interpretation of an: EKG ( Normal sinus rhythm at 66 beats per minutes, normal intervals, no ST-T changes, no significant change from prior EKG.) and Plain X-Ray ( Chest: No acute intrathoracic pathology.) Radiology Impression Discussion of test interpretation with radiology: I have reviewed the radiologist's reading. Discharge Plan Discharge Clinical Impression: Atypical chest pain Patient Disposition: Home, Self-Care Instructions: Noncardiac Chest Pain (ED) Prescriptions: No Action lorazepam 0.5 mg tablet 1 mg PO DAILY PRN (Reason: anxiety) Qty: 28 0RF omeprazole 20 mg capsule,delayed release(DR/EC) 20 mg PO DAILY hydrochlorothiazide 12.5 mg tablet 12.5 mg PO DAILY 90 Days Qty: 90 4RF atorvastatin [Lipitor] 20 mg tablet 20 mg PO BEDTIME 90 Days Qty: 90 3RF Referrals: Keny Matias MD [Primary Care Provider, Internal Medicine] Print Language: Belarusian
[2024-12-24 23:44] VITALS: BP 108/59; PULSE 63; RESP 13; TEMP 36.6; O2SAT 95
[2024-12-24 23:51] LABS: D Dimer High Sensitivity < 150 NG/ML
--- NOTE | 2024-12-25 00:26 | PC.NURSE ---
PT refused medication states she does not have GERD symptoms but will notify RN if she experiences such symptoms
[2024-12-25 02:03] LABS: Troponin-I High Sensitivity < 2.7 ng/L (<3.5-17.0)
[2024-12-25 02:29] VITALS: BP 117/62; PULSE 62; RESP 16; TEMP 36.4; O2SAT 97
== END 2024-12-25 02:30 | disposition home or self-care (01) ==
PROVIDERS: Emergency Provider Emergency Medicine; PCP Family Medicine
DX: R07.89 Other chest pain (principal); Z79.899 Other long term (current) drug therapy; Z87.891 Personal history of nicotine dependence
CPT/HCPCS: 36415; 71045; 80053; 83735; 84484; 85025; 85379; 93005; 99283; 99284

== ENCOUNTER → 2024-12-24 21:53 | Outpatient (BNV) | payer OTHER, SELFPAY | PROVIDERS: Emergency Provider Emergency Medicine; PCP Family Medicine; Visit Provider Internal Medicine Cardiovascular Disease | DX: R07.89 Other chest pain (principal) | CPT/HCPCS: 93010 ==

== ENCOUNTER → 2024-12-24 22:52 | Outpatient (BNV) | payer OTHER, SELFPAY | PROVIDERS: Emergency Provider Emergency Medicine; PCP Family Medicine; Visit Provider Radiology Diagnostic Radiology | DX: R07.89 Other chest pain (principal) | CPT/HCPCS: 71045 ==

== ENCOUNTER 2025-01-04 08:24 | Outpatient (AMB) | payer OTHER, SELFPAY ==
--- NOTE | 2025-01-04 08:27 | A.OFFPC_ITS ---
Vital Signs 01/04/25 08:32 Height 5 ft 8 in Weight 192 lb 4 oz BMI 29.2 BP 102/62 Blood Pressure Location Rt brachial Position Sitting Respiration 14 Pulse 59 Pulse Source Pulse Oximeter Temp 97.7 F Temp Source Temporal Artery Scan Pulse Oximetry (%) 96 Oxygen Delivery Method Room Air Intake Visit Reasons: f/u hypertension & hyperlipidemia /Cholesterol Intake Note: Lelo presents in the office today to follow up to her hypertension and hyperlipidemia. Patient is no longer taking the statin. GI Upset. Allergies Sulfa (Sulfonamide Antibiotics) (SULFA (SULFONAMIDE ANTIBIOTICS)) Allergy (Unknown, Verified 01/04/25 08:31) RASH atorvastatin Allergy (Verified 01/04/25 08:31) GI upset Penicillins Allergy (Verified 01/04/25 08:31) rash sulfacet Allergy (Unknown, Uncoded 01/04/25 08:31) Rash Sulfacet-R Allergy (Unknown, Uncoded 01/04/25 08:31) rash Medication List - Last Reconciled 01/04/25 by Keny Matias MD hydrochlorothiazide 12.5 mg PO DAILY 90 days lorazepam 1 mg (2 x 0.5 mg) PO DAILY PRN omeprazole 20 mg PO DAILY Tobacco use date assessed: 01/04/25 Dental Screening Dental Screen Date: 01/04/25 Did you have a dental visit in the last 12 months?: Yes Did you have a dental problem in the last 6 months where you did not have access to dental care?: No Was dental information given to patient?: Patient has dentist HPI f/u hypertension & hyperlipidemia /Cholesterol HPI Details 64 y/o female presents to f/u HTN, lipid s. Last lipid panel drawn 09/21/24. Triglycerides 90. TC 209. LDL 130. HDL 61. Recent ED visit for atypical chests pain, anxiety. Pt describes she had experienced what felt like a muscle cramp on her chest. She notes she had been experiencing these symptoms along with GI symptoms since she started her artovastatin. BP today 102/62, 59p. She is on HCTZ 12.5mg daily. [facility] Medical History No pertinent past medical history Surgical History No pertinent past surgical history Social History (Updated 01/04/25 @ 08:32 by Lindsay Gutierrez CMA) Household Members: Spouse and Family Both parents involved: No Caregiver staying overnight: No Housing: House Are you a primary multi care technician to a significant other at home: No Do you presently have visiting nurse or other home services: No 75 years or older and lives alone: No Alcohol intake: current Alcohol intake frequency: holidays/special occasions only Alcohol type: hard liquor and other Patient Tobacco Use Status: Former Tobacco user e-Cigarette/Vaping Use: Never Used Second Hand Smoke Exposure: No service: No Current occupational status: employed 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 Current occupational exposures/hazards: No Cognitive needs: No Hearing needs: No Vision needs: No Questionnaire Thrive Questionnaire Date Thrive assessed: 05/11/24 I am a: Patient What is your living situation today?: I have a steady place to live Within the past 12 months, did the food you bought not last and you didn't have the money to get more?: Never true Within the past 12 months, did you worry whether your food would run out before you got money to buy more?: Never true Do you have trouble paying for medicines?: No Do you have trouble getting transportation to medical appointments?: No Do you have trouble paying your heating and electricity bill?: No Do you have trouble taking care of your child, family member or friend?: No Do you have trouble with day-to-day activities such as bathing, preparing meals, shopping, managing finances, etc.?: No Are you currently unemployed and looking for a job?: No Are you interested in more education?: Yes Please select the resources that you would like help with: None Currently or been in a relationship where the following occur: No concerns reported THRIVE Score: 0 KARLA-7 AMB Questionnaire KARLA-7 Date KARLA - 7 assessed: 10/07/24 Source: Developed by Darline AlcalaW. Nelson, Dano Starr and colleagues, with an educational bev from [employer]. Review of Systems Const Denies chills, Denies fatigue, Denies fever(s), Denies headache(s) and Denies weakness ENT Denies dizziness and Denies headache(s) Card Denies dyspnea Resp Denies cough, Denies dyspnea, Denies wheezing and Denies other (shortness of breath) Musc Denies numbness and Denies tingling Neuro Denies dizziness, Denies headache(s), Denies numbness, Denies tingling and Denies weakness Psych Denies anxiety and Denies depression Endo Denies fatigue Aller/Immun Denies wheezing Physical exam (Primary Care) Vital Signs: Last Vital Signs Temp 97.7 F 01/04/25 08:32 Pulse 59 01/04/25 08:32 Resp 14 01/04/25 08:32 BP 102/62 01/04/25 08:32 Pulse Ox 96 01/04/25 08:32 Oxygen Delivery Method Room Air 01/04/25 08:32 BMI result Body Mass Index 29.2 Tobacco/Smoking Status: Tobacco use Status Tobacco use date assessed 01/04/25 01/04/25 08:35 Patient Tobacco Use Status Former Tobacco user 01/04/25 08:32 e-Cigarette/Vaping Use Never Used 01/04/25 08:32 Thrive Assessment: Date of Thrive Assessment Date Thrive assessed 05/11/24 01/04/25 08:29 Currently or been in a relationship where the following occur: No concerns reported Const General: well developed; No acute distress Nutritional Appearance: well nourished Orientation/consciousness: patient oriented x3 HENMT Head: Yes normocephalic and Yes atraumatic Eyes General: appearance normal, both eyes and all related structures Pupils: Equal, round and reactive pupils present EOM: EOMs intact bilaterally Resp Effort & Inspection: normal respiratory effort Auscultation: clear to auscultation bilaterally Cardio Rate: regular rate Rhythm: regular rhythm Heart sounds: S1 normal heart sound present, S2 normal heart sound present, no gallops, no murmurs and no rubs Neuro General: patient oriented x3 and gait normal Cranial nerves: Yes Equal, round and reactive pupils present Psych Affect: normal affect Coding Level of Care Code Est Pt Level 4 (93981) Diagnoses Hypertension I10 Hypercholesterolemia E78.00 Atypical chest pain R07.89 Assessment & Plan Assessment & Plan (1) Hypertension: Code(s): I10 - Essential (primary) hypertension Category: Medical Plan: Blood pressure is controlled. Goal is less than 140/90 Continue current medication Hydrate well (2) Hypercholesterolemia: Code(s): E78.00 - Pure hypercholesterolemia, unspecified Category: Medical Plan: LDL cholesterol was at goal of less than 100 with atorvastatin Patient is concerned that this caused her atypical chest pain recently so discontinued it She would like to try another medication to control cholesterol Will try Zetia Recheck lipids in 3 months (3) Atypical chest pain: Code(s): R07.89 - Other chest pain Category: Medical Plan: Recent ED visit for epigastric, right upper quadrant and chest pain. Ruled out for ACS She had been referred to GI but her upcoming appointment was rescheduled. History of hiatal hernia and this discomfort may represent GERD and esophageal spasm. Could also be symptoms from a chronic cholecystitis Reviewed precautions for GERD and also gallbladder problems. She work these Follow-up with GI as recommended Orders: Orders Lipid Panel Today E78.00 - Pure hypercholesterolemia, unspecified, Z00.00 - Encounter for general adult medical examination without abnormal findings Comprehensive [place]. Panel Fast Today E78.00 - Pure hypercholesterolemia, unspecified, Z00.00 - Encounter for general adult medical examination without abnormal findings Medications: New ezetimibe (Zetia) 10 mg PO DAILY 90 tabs 3RF 90 days
[2025-01-04 08:32] VITALS: BP 102/62; PULSE 59; RESP 14; TEMP 36.5; O2SAT 96; BMI 29.2
--- OUTSIDE RECORDS SUMMARY | 2025-01-04 09:22 | XMS_ITS | Encounter Summary ---
Author Organization [facility] Address [address] [place] [address] Care Team Providers Care Fibre Optics Jointer Name Role Phone Keny Matias MD Primary Care Provider Encounter Details Date Type Department Care Team (Late st Contact Info) Description 04/02/[address] [facility] - Main Lab [address] [facility] [place] [place] [phone] Mavis Mckeon MD [address] [address] Frequency of micturition Social History Tobacco Use [...] no further workup 04/03/2024 2:31 PM EST [facility] Urine Urine specimen obtained by clean catch procedure / Unknown 04/02/2024 4:27 PM EST 04/02/2024 5:54 PM EST us Mavis Mckeon MD LAB MICROBIOLOGY - G ENERAL ORDERABLES Final Result [facility] [address] [place] [address], documented in this encounter Visit Diagnoses Diagnosis Frequency of micturition Urinary frequency documented in this encounter Care Teams [employer] Jointer Relationship Specialty Start Date End Date Keny Matias MD [address] [place] [address] Dr Jaime [place] PCP - General 01/11/22 documented as of this encounter
--- OUTSIDE RECORDS SUMMARY | 2025-01-04 09:22 | XMS_ITS | Encounter Summary ---
Author Organization [facility] Address [address] [place] [address] Care Team Providers Care Rayon Coner Name Role Phone Keny Matias MD Primary Care Provider [phone] Encounter Details Date Type Department Care Team (Late st Contact Info) Description 07/23/2024 Lab Requisition [facility] - Main Lab [address] [facility] [place] [phone] Mavis Mckeon MD [address] [facility] [place] [address] [place] [phone] Dysuria Social History Tobacco Use Types Packs/Day [...] Escherichia coli(A) HOMER 07/24/2024 9:35 AM EDT [facility] Other Urine specimen from urethra [...] MICROBIOLOGY - G ENERAL ORDERABLES Final Result [facility] [address] [place] [address], documented in this encounter Visit Diagnoses Diagnosis Dysuria documented in this encounter Care Teams Rayon Coner Relationship Specialty Start Date End Date Keny Matias MD [address] [place] [address] Dr Sandoval [place] PCP - General 01/11/22 documented as of this encounter
--- OUTSIDE RECORDS SUMMARY | 2025-01-04 09:22 | XMS_ITS | Clinical Summary ---
Author Organization [facility] Address [address] [place] [address] Phone Care Team Providers Care Lock Installer Name Role Phone Keny Matias MD Primary Care Provider [phone] Allergies Active Allergy Reactions Criticality Noted Date [...] Mammo Location: [facility], [address] [place] [address], [address], . -------- FINAL REPORT -------- Dictated By: Ese Bahena Dictated Date: 08/11/2024 08:07 ET Assigned Physician: Ese Bahena Reviewed and Electronically Signed By: Ese Bahena Signed Date: 08/11/2024 08:09 ET Workstation ID: [id number] Transcribed By: Self Edit Transcribed Date: 08/11/2024 [...] Mammo Location: [facility], [address] [place] [address], [address], . -------- FINAL REPORT -------- Dictated By: Ese Bahena Dictated Date: 08/11/2024 08:07 ET Assigned Physician: Ese Bahena Reviewed and Electronically Signed By: Ese Bahena Signed Date: 08/11/2024 08:09 ET Workstation ID: [id number] Transcribed By: Self Edit Transcribed Date: 08/11/2024 08:07 ET us Self Referral Sppl IMG BI PROCEDURES Final Resul t * COLONOSCOPY Anesthesia - MAC; [facility] ENDOSCOPY (04/01/2024 10:29 AM EST) Anatomical Region [...] PRN. Narrative 04/01/2024 10:31 AM EST [facility] GI Patient Name: Lelo Wang Procedure Date: [...] retroflexion views. Procedure Code(s): --- Professional --- 23292, Colonoscopy, flexible; diagnostic, including collection of specimen(s) by brushing or washing, when performed (separate procedure) Diagnosis Code(s): --- Professional --- Z86.010, Personal history of colonic polyps K64.8, Other hemorrhoids K57.30, Diverticulosis of large intestine without perforation or abscess without bleeding CPT copyright 2021 [employer]. All rights reserved. The codes documented in this report are preliminary and upon event coordinator marketing and sales review may be revised to meet current compliance requirements. Joey Greene MD 04/01/2024 10:30:56 AM This report has been signed electronically.Joey Greene MD Number of Addenda: 0 Note Initiated On: 04/01/2024 10:10 AM Scope In: Scope Out: Endoscopy Department at [facility] - [address] [place] [phone] Procedure Note Joey Greene MD - 04/01/2024 [facility] GI Patient Name: Lelo Wang Procedure Date: [...] retroflexion views. Procedure Code(s): --- Professional --- 05817, Colonoscopy, flexible; diagnostic, including collection of specimen(s) by brushing or washing,when performed (separate procedure) Diagnosis Code(s): --- Professional --- Z86.010, Personal history of colonic polyps K64.8, Other hemorrhoids K57.30, Diverticulosis of large intestine without perforation or abscess without bleeding CPT copyright 2020 [employer]. All rights reserved. The codes documented in this report are preliminary and upon event coordinator marketing and sales reviewmay be revised to meet current compliance requirements. Joey Greene MD 04/01/2024 10:30:56 AM This report has been signed electronically.Joey Greene MD Number of Addenda: 0 Note Initiated On: 04/01/2024 10:10 AM Scope In: Scope Out: Endoscopy Department at [facility] - [address] [place] [phone] IMPRESSION: - Diverticulosis in the entire examined [...] Most Recently Relevant to Health Maintenance Insurance [facility] Care Teams Lock Installer Relationship Specialty Start Date End Date Keny Matias MD [address] [place] [address] Dr Jaime [place] PCP - General 01/11/22
== END 2025-01-04 09:07 | disposition home or self-care (01) ==
LOC: HO.HMCFM 08:25
PROVIDERS: PCP Family Medicine; Visit Provider Family Medicine
DX: I10 Essential (primary) hypertension (principal); E78.00 Pure hypercholesterolemia, unspecified; R07.89 Other chest pain

== ENCOUNTER 2025-03-14 11:48 | Emergency (ER) | payer OTHER, SELFPAY ==
--- NOTE | ~2025-03-14 | CT_ITS ---
EXAMINATION: CT HEAD WITHOUT CONTRAST CLINICAL INFORMATION: Changes COMPARISON: None available. TECHNIQUE: Contiguous axial imaging was performed from the skull base to vertex without intravenous administration of contrast. This CT examination was performed using dose optimization techniques as appropriate, variously including the following: *Automated exposure control *Adjustment of mA and/or kV according to patient size (this includes techniques or standardized protocols for targeted exams where dose is matched to indication/reason for exam; i.e. extremities or head) *Use of iterative reconstruction technique FINDINGS: There is no acute ischemic change. There is no intracranial hemorrhage. There is no mass-effect or midline shift. Basal cisterns and ventricles are within normal limits for age/cerebral volume. Orbits are symmetrical and unremarkable. Paranasal sinuses and mastoid air cells are pneumatized. There are no bony abnormalities. CT/CT head/brain wo IV con IMPRESSION: No acute intracranial abnormality. Electronically signed by: Barrett Allan MD 03/14/2025 12:28 PM [facility]
[2025-03-14 11:57] VITALS: BP 150/77; PULSE 70; RESP 18; TEMP 36.6; O2SAT 98; BMI 28.7
--- NOTE | 2025-03-14 11:58 | ED.GENADULT ---
HPI - General Adult General Chief complaint: General Medical Stated complaint: High Blood Pressure Time Seen by Provider: 03/14/25 16:47 Related Data Home Medications ?Medication ?Instructions ?Recorded ?Confirmed omeprazole 20 mg capsule,delayed 20 mg PO DAILY 08/23/22 01/04/25 release Previous Rx's ?Medication ?Instructions ?Recorded hydrochlorothiazide 12.5 mg tablet 12.5 mg PO DAILY 90 days #90 tabs 05/11/24 ezetimibe 10 mg tablet (Zetia) 10 mg PO DAILY 90 days #90 tabs 01/04/25 lorazepam 0.5 mg tablet 1 mg (2 x 0.5 mg) PO DAILY PRN 03/02/25 anxiety #28 tabs Allergies Allergy/AdvReac Type Severity Reaction Status Date / Time Sulfa (Sulfonamide Allergy Unknown RASH Verified 03/14/25 12:00 Antibiotics) (SULFA (SULFONAMIDE ANTIBIOTICS)) atorvastatin Allergy GI upset Verified 03/14/25 12:00 Penicillins Allergy rash Verified 03/14/25 12:00 sulfacet Allergy Unknown Rash Uncoded 03/14/25 12:00 Sulfacet-R Allergy Unknown rash Uncoded 03/14/25 12:00 PMFSH Past Medical History Medical History No pertinent past medical history Surgical History No pertinent past surgical history Social History Social History (Updated 01/04/25 @ 08:32 by Lindsay Gutierrez CMA) Household Members: Spouse and Family Housing: House Are you a primary transitional care nurse to a significant other at home: No Do you presently have visiting nurse or other home services: No Alcohol intake: current Alcohol intake frequency: holidays/special occasions only Alcohol type: hard liquor and other Patient Tobacco Use Status: Former Tobacco user e-Cigarette/Vaping Use: Never Used Second Hand Smoke Exposure: No Advance Directives: No Advance Directives Information Provided: No Do you have a plan to hurt others: No Plan service: No Current occupational status: employed 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 Patient is a 65y/o F presenting with complaint of lightheadedness, visual changes since this morning. Checked BP at work and it was elevated (172/100). Unable to describe visual changes but states it is affecting both eyes. Took Ativan FERMENTER WINE. Denies any current pain. Plan: EKG, labs, CT head Medical Decision Making Lab Data 03/14/25 12:59 03/14/25 12:59 Labs: Lab Results 03/14/25 Range/Units 12:59 WBC 5.8 (4.8-10.8) X10*3/uL RBC 5.21 (4.20-5.50) X10*6/uL Hgb 14.4 (12.0-16.0) g/dl Hct 42.7 (37.0-47.0) % MCV 82.0 (80.0-98.0) fL MCH 27.6 (27.0-33.0) pg MCHC 33.7 (31.0-35.0) g/dl RDW 12.5 (11.0-16.0) % Plt Count 198 (160-400) X10*3/uL MPV 9.2 L (9.4-12.3) fL Immature Gran % (Auto) 0.2 (0.0-0.4) % Neut % (Auto) 68.3 (45-73) % Lymph % (Auto) 23.9 (20-40) % [place] % (Auto) 5.8 (2-11) % Eos % (Auto) 1.5 (0-4) % Baso % (Auto) 0.3 (0-2) % Lymph # (Auto) 1.4 (1.2-4.9) X10*3/uL [place] # (Auto) 0.3 (0.1-1.2) X10*3/uL Eos # (Auto) 0.1 (0.0-0.4) X10*3/uL Baso # (Auto) 0.0 (0.0-0.2) X10*3/uL Abs Immat Gran (auto) 0.01 (0.00-0.03) X10*3/uL Absolute Neuts (auto) 4.0 (2.0-8.3) x10*3/uL Absolute Nucleated RBC 0.000 (0.0-0.012) X10*3/uL Nucleated RBC % (auto) 0.0 (0.0-0.2) /100WBC PT 12.3 (11.2-13.5) SEC INR 1.0 (0.9-1.1) Sodium 143 (135-145) mmol/L Potassium 3.9 (3.3-5.1) mmol/L Chloride 107 (96-108) mmol/L Carbon Dioxide 28 (22-29) mmol/L Anion Gap 12 (12-20) BUN 10 (9-16) mg/dL Creatinine 0.85 (0.5-1.4) mg/dL Estim Creat Clear Calc 76.6 Estimated GFR > 60 Random Glucose 110 (60-115) mg/dL Calcium 9.9 (8.4-10.2) mg/dL Total Bilirubin 0.7 (0.0-1.0) mg/dL AST 25 (5-31) U/L ALT 21 (0-31) U/L Alkaline Phosphatase 83 (39-117) U/L Troponin I High Sens < 2.7 (<3.5-17.0) ng/L Total Protein 7.3 (6.5-8.0) g/dL Albumin 4.6 (3.5-5.0) g/dL Influenza Type A (PCR) NEGATIVE (Negative) Influenza Type B (PCR) NEGATIVE (Negative) RSV RNA Qual (PCR) NEGATIVE (Negative) SARS-CoV-2 RNA (RT-PCR) NEGATIVE (Negative) Discharge Plan Discharge Clinical Impression: Hypertension Patient Disposition: Home, Self-Care Instructions: Chronic Hypertension (ED) Prescriptions: No Action lorazepam 0.5 mg tablet 1 mg PO DAILY PRN (Reason: anxiety) Qty: 28 0RF omeprazole 20 mg capsule,delayed release(DR/EC) 20 mg PO DAILY hydrochlorothiazide 12.5 mg tablet 12.5 mg PO DAILY 90 Days Qty: 90 4RF ezetimibe [Zetia] 10 mg tablet 10 mg PO DAILY 90 Days Qty: 90 3RF Print Language: Faroese
--- NOTE | 2025-03-14 12:00 | ECG_ITS ---
Test Reason : LIGHTHEADEDNESS Blood Pressure : */* mmHG Vent. Rate : 70 BPM Atrial Rate : 70 BPM P-R Int : 144 ms QRS Dur : 80 ms QT Int : 374 ms P-R-T Axes : 45 -27 3 degrees QTcB Int : 403 ms Normal sinus rhythm Nonspecific T wave abnormality Abnormal ECG When compared with ECG of 24-Dec-2024 21:59, T wave inversion more evident in Inferior leads Nonspecific T wave abnormality now evident in Anterolateral leads Referred By: Harriet Butler Electronically Signed By: MILEY VERMA
[2025-03-14 13:13] LABS: MANUAL DIFF FLAG NO
[2025-03-14 13:15] LABS: Hematocrit 42.7 % (37.0-47.0); Hemoglobin 14.4 g/dl (12.0-16.0); Imm Gran Abs Auto 0.01 X10*3/uL (0.00-0.03); Imm Gran Pct Auto 0.2 % (0.0-0.4); Lymphocytes Absolute Auto 1.4 X10*3/uL (1.2-4.9); Mean Corpuscular HGB Conc 33.7 g/dl (31.0-35.0); Mean Corpuscular Hemoglobin 27.6 pg (27.0-33.0); Mean Corpuscular Volume 82.0 fL (80.0-98.0); NRBC Abs Auto 0.000 X10*3/uL (0.0-0.012); NRBC Pct Auto 0.0 /100WBC (0.0-0.2); Platelet Count 198 X10*3/uL (160-400); Red Blood Count 5.21 X10*6/uL (4.20-5.50); White Blood Count 5.8 X10*3/uL (4.8-10.8)
[2025-03-14 13:26] LABS: INTERNATIONAL NORM RATIO 1.0 (0.9-1.1); Prothrombin Time 12.3 SEC (11.2-13.5)
[2025-03-14 13:31] LABS: Alanine Aminotransferase 21 U/L (0-31); Albumin Level 4.6 g/dL (3.5-5.0); Alkaline Phosphatase 83 U/L (39-117); Anion Gap 12 (12-20); Aspartate Amino Transferase 25 U/L (5-31); Blood Urea Nitrogen 10 mg/dL (9-16); Calcium 9.9 mg/dL (8.4-10.2); Carbon Dioxide 28 mmol/L (22-29); Chloride 107 mmol/L (96-108); Creatinine Clr Calc Pharmacy 76.6; Estimated Glomerular Filt Rate > 60; Potassium 3.9 mmol/L (3.3-5.1); Sodium 143 mmol/L (135-145); Total Protein 7.3 g/dL (6.5-8.0)
[2025-03-14 13:51] LABS: Resp Syncy Virus RNA Qual PCR NEGATIVE (Negative); SARS COV2 PCR INHOUSE NEGATIVE (Negative)
[2025-03-14 13:54] LABS: Troponin-I High Sensitivity < 2.7 ng/L (<3.5-17.0)
[2025-03-14 16:47] VITALS: BP 146/81; PULSE 69; RESP 16; TEMP 36.3; O2SAT 98
[2025-03-14 17:34] VITALS: BP 146/81; PULSE 69; RESP 16; TEMP 36.3; O2SAT 98
--- OUTSIDE RECORDS SUMMARY | 2025-03-14 18:19 | XMS_ITS | Encounter Summary ---
Author Organization [facility] Address [address] [place] [address] Care Team Providers Care Sales Manager Prearranged Funerals Name Role Phone Keny Matias MD Primary Care Provider [phone] Encounter Details Date Type Department Care Team (Late st Contact Info) Description 04/02/[address] [facility] - Main Lab [address] [facility] [place] [phone] Mavis Mckeon MD [address] [address] Frequency of micturition Social History Tobacco Use Types Packs/Day Years Used Date Smoking Tobacco: Former Cigarettes 0.5 10 1 - 1989 Passive Smoke Exposure: Past Alcohol Use Standard Drinks/Week Comments Yes 2 (1 standard drink = 0.6 oz pur e alcohol) COUPLE TIMES A MONTH Interpersonal Safety Answer Date Record ed Physical Abuse Unrecognized value 04/01/2024 Verbal Abuse Unrecognized value 04/01/2024 Comments No Sex and Gender Information [...] no further workup 04/03/2024 2:31 PM EST [facility] Urine Urine specimen obtained by clean catch procedure / Unknown 04/02/2024 4:27 PM EST 04/02/2024 5:54 PM EST us Mavis Mckeon MD LAB MICROBIOLOGY - G ENERAL ORDERABLES Final Result [facility] [address] [place] [address], documented in this encounter Visit Diagnoses Diagnosis Frequency of micturition Urinary frequency documented in this encounter Care Teams Sales Manager Prearranged Funerals Relationship Specialty Start Date End Date Keny Matias MD [address] [place] [address] Dr Jaime [place] PCP - General 01/11/22 documented as of this encounter
--- OUTSIDE RECORDS SUMMARY | 2025-03-14 18:19 | XMS_ITS | Encounter Summary ---
Author Organization [facility] Address [address] [place] [address] Care Team Providers Care Feather Drying Machine Operator Name Role Phone Keny Matias MD Primary Care Provider [phone] Encounter Details Date Type Department Care Team (Late st Contact Info) Description 07/23/2024 Lab Requisition [facility] - Main Lab 299 [facility] [place] [phone] Mavis Mckeon MD [address] [facility] [place] [address] [place] [address] Dysuria Social History Tobacco Use Types Packs/Day [...] ORDERABLES Final Result [facility] [address] [place] [address], [place] [phone] documented in this encounter Visit Diagnoses Diagnosis Dysuria documented in this encounter Care Teams Feather Drying Machine Operator Relationship Specialty Start Date End Date Keny Matias MD [address] [place] [address] Dr Sandoval [place] PCP - General 01/11/22 documented as of this encounter
--- OUTSIDE RECORDS SUMMARY | 2025-03-14 18:19 | XMS_ITS | Clinical Summary ---
Author Organization [facility] Address [address] [place] [address] Phone Care Team Providers Care Parcel Post Delivery Name Role Phone Keny Matias MD Primary Care Provider [phone] Allergies Active Allergy Reactions Criticality Noted Date [...] Screening 03/17/2022 Depression Screening 04/14/2024 COVID-19 Vaccine (3 - 2025-26 season) 2024 05/22/2020, 04/26/2020 Influenza Vaccine (#1) [...] Mammo Location: [facility], [address] [place] [address], [address], . -------- FINAL REPORT -------- Dictated By: Ese Bahena Dictated Date: 08/11/2024 08:07 ET Assigned Physician: Ese Bahena Reviewed and Electronically Signed By: Ese Bahena Signed Date: 08/11/2024 08:09 ET Workstation ID: [id number] Transcribed By: Self Edit Transcribed Date: 08/11/2024 [...] Mammo Location: [facility], [address] [place] [address], [address], . -------- FINAL REPORT -------- Dictated By: Ese Bahena Dictated Date: 08/11/2024 08:07 ET Assigned Physician: Ese Bahena Reviewed and Electronically Signed By: Ese Bahena Signed Date: 08/11/2024 08:09 ET Workstation ID: [id number] Transcribed By: Self Edit Transcribed Date: 08/11/2024 08:07 ET us Self Referral Sppl IMG BI PROCEDURES Final Resul t * COLONOSCOPY Anesthesia - MAC; [facility] ENDOSCOPY (04/01/2024 10:29 AM EST) Anatomical [...] PRN. Narrative 04/01/2024 10:31 AM EST [facility] Patient Name: Lelo Wang [...] retroflexion views. Procedure Code(s): --- Professional --- 95928, Colonoscopy, flexible; diagnostic, including collection of specimen(s) by brushing or washing, when performed (separate procedure) Diagnosis Code(s): --- Professional --- Z86.010, Personal history of colonic polyps K64.8, Other hemorrhoids K57.30, Diverticulosis of large intestine without perforation or abscess without bleeding CPT copyright 202 [employer]. All rights reserved. The codes documented in this report are preliminary and upon special procedure tech review may be revised to meet current compliance requirements. Joey Greene MD 04/01/2024 10:30:56 AM This report has been signed electronically.Joey Greene MD Number of Addenda: 0 Note Initiated On: 04/01/2024 10:10 AM Scope In: Scope Out: Endoscopy Department at [facility] - [address] [place] [phone] Procedure Note Joey Greene MD - 04/01/2024 [facility] GI Patient Name: Lelo Wang [...] retroflexion views. Procedure Code(s): --- Professional --- 64182, Colonoscopy, flexible; diagnostic, including collection of specimen(s) by brushing or washing,when performed (separate procedure) Diagnosis Code(s): --- Professional --- Z86.010, Personal history of colonic polyps K64.8, Other hemorrhoids K57.30, Diverticulosis of large intestine without perforation or abscess without bleeding CPT copyright 2020 [employer]. All rights reserved. The codes documented in this report are preliminary and upon special procedure tech reviewmay be revised to meet current compliance requirements. Joey Greene MD 04/01/2024 10:30:56 AM This report has been signed electronically.Joey Greene MD Number of Addenda: 0 Note Initiated On: 04/01/2024 10:10 AM Scope In: Scope Out: Endoscopy Department at [facility] - [address] [place] [phone] IMPRESSION: - Diverticulosis in the entire examined [...] Most Recently Relevant to Health Maintenance Insurance [facility] Care Teams Parcel Post Delivery Relationship Specialty Start Date End Date Keny Matias MD [address] [place] [address] Dr Jaime [place] PCP - General 01/11/22
== END 2025-03-14 17:35 | disposition home or self-care (01) ==
PROVIDERS: Registered Nurse Emergency; Emergency Provider Student in an Organized Health Care Education/Training Program; PCP Family Medicine
DX: I10 Essential (primary) hypertension (principal); Z88.0 Allergy status to penicillin; Z88.2 Allergy status to sulfonamides; Z88.8 Allergy status to other drugs, medicaments and biological substances; Z03.818 Encounter for observation for suspected exposure to other biological agents ruled out
CPT/HCPCS: 70450; 80053; 84484; 85025; 85610; 87637; 93005; 99284

== ENCOUNTER → 2025-03-14 12:00 | Outpatient (BNV) | payer OTHER, SELFPAY | PROVIDERS: Emergency Provider Student in an Organized Health Care Education/Training Program; PCP Family Medicine; Visit Provider Internal Medicine | DX: R94.31 Abnormal electrocardiogram [ECG] [EKG] (principal); R42 Dizziness and giddiness | CPT/HCPCS: 93010 ==

== ENCOUNTER → 2025-03-14 12:00 | Outpatient (BNV) | payer OTHER, SELFPAY | PROVIDERS: Visit Provider Radiology Diagnostic Radiology | DX: H53.9 Unspecified visual disturbance (principal) | CPT/HCPCS: 70450 ==

== ENCOUNTER 2025-03-15 07:04 | Outpatient (REF) | payer OTHER, SELFPAY ==
--- OUTSIDE RECORDS SUMMARY | 2025-03-15 07:07 | XMS_ITS | Encounter Summary ---
Author Organization [facility] Address [address] [place] [address] Care Team Providers Care Riveter Name Role Phone Keny Matias MD Primary Care Provider [phone] Encounter Details Date Type Department Care Team (Late st Contact Info) Description 07/23/2024 Lab Requisition [facility] - Main Lab 299 [facility] [place] [phone] Mavis Mckeon MD [address] [facility] [place] [address] [place] [phone] Dysuria Social History Tobacco Use Types Packs/Day [...] Escherichia coli(A) HOMER 07/24/2024 9:35 AM EDT [facility] Other Urine specimen from urethra [...] MICROBIOLOGY - G ENERAL ORDERABLES Final Result [facility] [address] [place] [address], [place] [phone] documented in this encounter Visit Diagnoses Diagnosis Dysuria documented in this encounter Care Teams Riveter Relationship Specialty Start Date End Date Keny Matias MD [address] [place] [address] Dr Sandoval [place] PCP - General 01/11/22 documented as of this encounter
--- OUTSIDE RECORDS SUMMARY | 2025-03-15 07:07 | XMS_ITS | Clinical Summary ---
Author Organization [facility] Address [address] [place] [address] Phone Care Team Providers Care Toe Lining Closer Name Role Phone Keny Matias MD Primary Care Provider [phone]- [phone] Allergies Active Allergy Reactions Criticality Noted Date [...] year. Mammo Location: [facility], [address] [place] [address], [address], . -------- FINAL REPORT -------- Dictated By: Ese Bahena Dictated Date: 08/11/2024 08:07 ET Assigned Physician: Ese Bahena Reviewed and Electronically Signed By: Ese Bahena Signed Date: 08/11/2024 08:09 ET Workstation ID: [id number] Transcribed By: Self Edit Transcribed Date: 08/11/2024 [...] year. Mammo Location: [facility], [address] [place] [address], [address], . -------- FINAL REPORT -------- Dictated By: Ese Bahena Dictated Date: 08/11/2024 08:07 ET Assigned Physician: Ese Bahena Reviewed and Electronically Signed By: Ese Bahena Signed Date: 08/11/2024 08:09 ET Workstation ID: [id number] Transcribed By: Self Edit Transcribed Date: 08/11/2024 08:07 ET us Self Referral Sppl IMG BI PROCEDURES Final Resul t * COLONOSCOPY Anesthesia - MAC; [facility] ENDOSCOPY (04/01/2024 10:29 AM EST) Anatomical [...] office PRN. Narrative 04/01/2024 10:31 AM EST [facility] Patient Name: Lelo Wang Procedure [...] retroflexion views. Procedure Code(s): --- Professional --- 29169, Colonoscopy, flexible; diagnostic, including collection of specimen(s) by brushing or washing, when performed (separate procedure) Diagnosis Code(s): --- Professional --- Z86.010, Personal history of colonic polyps K64.8, Other hemorrhoids K57.30, Diverticulosis of large intestine without perforation or abscess without bleeding CPT copyright 202 [employer]. All rights reserved. The codes documented in this report are preliminary and upon hims coder review may be revised to meet current compliance requirements. Joey Greene MD 04/01/2024 10:30:56 AM This report has been signed electronically.Joey Greene MD Number of Addenda: 0 Note Initiated On: 04/01/2024 10:10 AM Scope In: Scope Out: Endoscopy Department at [facility] - [address] [place] [phone] Procedure Note Joey Greene MD - 04/01/2024 [facility] Patient Name: Lelo Wang Procedure [...] retroflexion views. Procedure Code(s): --- Professional --- 84734, Colonoscopy, flexible; diagnostic, including collection of specimen(s) by brushing or washing,when performed (separate procedure) Diagnosis Code(s): --- Professional --- Z86.010, Personal history of colonic polyps K64.8, Other hemorrhoids K57.30, Diverticulosis of large intestine without perforation or abscess without bleeding CPT copyright 2020 [employer]. All rights reserved. The codes documented in this report are preliminary and upon hims coder reviewmay be revised to meet current compliance requirements. Joey Greene MD 04/01/2024 10:30:56 AM This report has been signed electronically.Joey Greene MD Number of Addenda: 0 Note Initiated On: 04/01/2024 10:10 AM Scope In: Scope Out: Endoscopy Department at [facility] - [address] [place] [phone] IMPRESSION: - Diverticulosis in the entire examined [...] Most Recently Relevant to Health Maintenance Insurance [facility] Care Teams Toe Lining Closer Relationship Specialty Start Date End Date Keny Matias MD [address] [place] [address] Dr Jaime [place] PCP - General 01/11/22
--- OUTSIDE RECORDS SUMMARY | 2025-03-15 07:07 | XMS_ITS | Encounter Summary ---
Author Organization [facility] Address [address] [place] [address] Care Team Providers Care Assistant Paralegal Name Role Phone Keny Matias MD Primary Care Provider Encounter Details Date Type Department Care Team (Late st Contact Info) Description 04/02/2024 Lab Requisition [facility] - Main Lab 299 [facility] [place] [phone] Mavis Mckeon MD 3640 [facility] [place] [address] [place] [phone] Frequency of micturition Social History Tobacco Use [...] no further workup 04/03/2024 2:31 PM EST [facility] Urine Urine specimen obtained by clean catch procedure / Unknown 04/02/2024 4:27 PM EST 04/02/2024 5:54 PM EST us Mavis Mckeon MD LAB MICROBIOLOGY - G ENERAL ORDERABLES Final Result [facility] [address] [place] [address], documented in this encounter Visit Diagnoses Diagnosis Frequency of micturition Urinary frequency documented in this encounter Care Teams Assistant Paralegal Relationship Specialty Start Date End Date Keny Matias MD [address] [place] [address] Dr Jaime [place] PCP - General 01/11/22 documented as of this encounter
[2025-03-15 07:58] LABS: Appearance Urine Clear; Glucose Urine UA Negative (Negative); PH 7.5 (5.0-9.0); Specific Gravity - Urine 1.015 (1.005-1.025); UMIC TRIGGER UA YES
[2025-03-15 08:11] LABS: Alanine Aminotransferase 21 U/L (0-31); Albumin Level 4.5 g/dL (3.5-5.0); Alkaline Phosphatase 79 U/L (39-117); Anion Gap 11 (12-20); Aspartate Amino Transferase 24 U/L (5-31); Blood Urea Nitrogen 12 mg/dL (9-16); Calcium 9.7 mg/dL (8.4-10.2); Carbon Dioxide 28 mmol/L (22-29); Chloride 108 mmol/L (96-108); Cholesterol 210 mg/dL (<200); Estimated Glomerular Filt Rate > 60; HDL Cholesterol 62 mg/dL (>40); Potassium 3.9 mmol/L (3.3-5.1); Sodium 143 mmol/L (135-145); Total Protein 7.1 g/dL (6.5-8.0); Triglycerides 92 mg/dL (<150)
== END 2025-03-15 07:05 | disposition home or self-care (01) ==
LOC: HO.LAB 07:04
PROVIDERS: PCP Family Medicine; Visit Provider Family Medicine
DX: Z00.00 Encounter for general adult medical examination without abnormal findings (principal); E78.00 Pure hypercholesterolemia, unspecified
CPT/HCPCS: 36415; 80053; 80061; 81001

== ENCOUNTER 2025-03-16 07:54 | Outpatient (AMB) | payer OTHER, SELFPAY ==
--- NOTE | 2025-03-16 07:57 | MHC.OFFVIS ---
Vital Signs 03/16/25 07:58 Height 5 ft 8 in Weight 188 lb BMI 28.6 BP 118/71 Blood Pressure Location Lt brachial Position Sitting Pulse 72 Intake Visit Reasons: Gastroesophageal reflux disease (GERD) Intake Note: Patient new consult for GERDpation on and off. Patient cc: Nauseas on and off, occasionally abdominal bloating, heartburn with dry throat, and between diarrhea and consti Quality Process Lead Required: No Accompanied by: Self / Same As Patient Allergies Sulfa (Sulfonamide Antibiotics) (SULFA (SULFONAMIDE ANTIBIOTICS)) Allergy (Unknown, Verified 03/16/25 07:57) RASH atorvastatin Allergy (Verified 03/16/25 07:57) GI upset Penicillins Allergy (Verified 03/16/25 07:57) rash sulfacet Allergy (Unknown, Uncoded 03/14/25 12:00) Rash Sulfacet-R Allergy (Unknown, Uncoded 03/14/25 12:00) rash Medication List - Last Reconciled 03/16/25 by Maame Henson CNP ezetimibe (Zetia) 10 mg PO DAILY 90 days hydrochlorothiazide 12.5 mg PO DAILY 90 days lorazepam 1 mg (2 x 0.5 mg) PO DAILY PRN omeprazole 20 mg PO BID HPI HPI Gastroesophageal reflux disease (GERD): Details: Patient is a 65-year-old female with PMH of anxiety, obesity, hyperlipidemia, hypertension. Referred by PCP for further evaluation of GERD Lelo reports longstanding reflux symptoms, previously diagnosed with a type I sliding hiatal hernia. She first noted symptoms over a decade ago and reports the reflux has worsened in the past year. Symptom character includes classic heartburn and intermittent episodes of regurgitation, primarily with liquids and mucus, no true food regurgitation. Severity is variable, usually responsive to dietary restriction and acid suppression therapy, though she remains cautious with her intake, particularly avoiding triggers such as chips, fried foods, alcohol, acidic foods, and large meals. Symptoms occur episodically and tend to worsen with dietary indiscretion or at night when supine. She has adapted by eating small, bland meals and uses antacids (TUMS) PRN with some relief. Appetite remains stable, without weight changes (upper 180s?190s). She denies dysphagia, odynophagia, nausea, vomiting, hematemesis, melena, hematochezia, or unexplained weight loss. 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 No evidence of anemia, normal LFTs and kidney function, H. pylori neg in September 2024. On omeprazole 20mg qAM for >10 years, no prior dose increase. Colonoscopy Mar 2024: diverticulosis, small internal hemorrhoid, otherwise WNL; colonoscopies q5yr always unremarkable. Family history negative for GI malignancy. She declined previous surgical offer. Patient is not interested in surgery unless medically necessary. History of variable bowel habits over decades, sometimes with loose but formed stools, occasionally difficult evacuation, but denies consistent diarrhea, constipation, or abdominal pain; prior IBS dx (remote, questionable per pt), current stools typically satisfactory. No hx of IBD. of note ER visit 12/24/2024 for epigastric pain. Cardiac workup negative. Deemed acid and anxiety induced. Discharge with lorazepam 0.5 mg daily as needed and to continue omeprazole 20 mg daily, Non-GI: Recent brief BP elevations (hospitalized for hypertensive episode, no sequelae), occasional anxiety/insomnia, increased stress (anniversary of mother's ). No cardiac or neurologic pathology per recent studies. Patient denies: fever/chills, n/v, appetite changes, regurgitation, dysphasia, unintentional wt loss, ab pain or melena/hematochezia. Social hx: -ETOH use up to 3x/months -denies recreational drug use -former smoker, cessation 30+ years ago - family hx as below -denies personal hx of CA -denies significant cardiopulmonary history -tolerated anesthesia in the past without difficulty. [facility] Medical History (Updated 03/16/25 @ 08:55 by Maame Henson CNP) Diverticulosis Fatty liver No pertinent past medical history Surgical History No pertinent past surgical history Social History Household Members: Spouse and Family Both parents involved: No Caregiver staying overnight: No Housing: House Are you a primary care management specialist to a significant other at home: No Do you presently have visiting nurse or other home services: No 75 years or older and lives alone: No Alcohol intake: current Alcohol intake frequency: holidays/special occasions only Alcohol type: hard liquor and other Patient Tobacco Use Status: Former Tobacco user e-Cigarette/Vaping Use: Never Used Second Hand Smoke Exposure: No service: No Current occupational status: employed 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 Current occupational exposures/hazards: No Cognitive needs: No Hearing needs: No Vision needs: No Review of Systems Const Reports as per HPI ENT Reports as per HPI Card Reports as per HPI Resp Reports as per HPI GI Reports as per HPI Reports as per HPI Physical Exam Vital Signs: Last Vital Signs Pulse 72 03/16/25 07:58 BP 118/71 03/16/25 07:58 BMI result Body Mass Index 28.6 Const General: healthy appearing, no acute distress and well developed Nutritional Appearance: average body habitus Orientation/consciousness: patient oriented x3 HEENT Head: Yes normal to inspection, Yes normocephalic and Yes atraumatic Face and sinus: Yes normal facial exam Eyes General: appearance normal, both eyes and all related structures Neck Neck: Yes normal visual inspection Resp Effort & Inspection: normal respiratory effort, able to speak in complete sentences, no tracheal deviation and symmetric chest movement Cardio Jugular venous distension: no JVD GI Inspection: Yes normal to inspection and No distended Palpation (GI): Soft to palpation, not firm, nontender and No hepatosplenomegaly present Auscultation: normal bowel sounds Neuro General: patient oriented x3 Gait exam (Neuro): Normal gait present Psych Appearance: grossly normal Mental Status: mental status grossly normal Speech and movement: Normal speech and movement present Affect: normal affect Attitude: cooperative Thought process: Normal thought process present Thought content: Normal thought content present Insight: Good insight present (Psych) Judgement: Good judgement present (Psych) Assessment & Plan Assessment & Plan (1) GERD (gastroesophageal reflux disease): Code(s): K21.9 - Gastro-esophageal reflux disease without esophagitis Category: Medical Qualifiers: Esophagitis presence: esophagitis presence not specified Qualified Code(s): K21.9 - Gastro-esophageal reflux disease without esophagitis Plan: Symptom constellation (heartburn, regurgitation) with imaging confirming hiatal hernia, chronicity, and partial medication response. Additional Testing: - Attempt to obtain outside reports: esophageal manometry , upper endoscopy (last ~5y ago, repeat only if symptoms persist after uptitration), prior imaging (already reviewed) - repeat EGD deferred per pt preference. Willing to obtain only if sx do not improve with increased PPI or if red flags develop Medication Management: - Increase omeprazole to 40mg daily (either as 40mg qAM or split 20mg BID per patient preference and timing of sx), trial for 8 weeks - PRN famotidine (Pepcid) 20mg for breakthrough sx (Rx sent) - Continue TUMS PRN for acute episodes Lifestyle Recommendations: - Continue bland diet, avoid known triggers (acidic, spicy, fried, fatty foods, large or late meals, alcohol) - Continue upright posture post meals, small portion sizes, maintain hydration - Weight management as appropriate, exercise encouraged Follow-Up: - Revisit in 8 weeks to assess response to uptitrated omeprazole and lifestyle changes - Hold upper endoscopy order for now; consider placing if sx persist or worsen - Refer for surgical eval only if refractory sx after above mgmt and/or pt preference (2) Fatty liver: Code(s): K76.0 - Fatty (change of) liver, not elsewhere classified Category: Medical Plan: MRI findings (2021), no clinical signs of liver dysfunction Additional Testing: None indicated at this time Medication Management: None required currently Lifestyle Recommendations: Continue current diet, maintain healthy weight, avoid hepatotoxic agents Follow-Up: Routine surveillance as indicated with PCP (3) Diverticulosis: Comment: 04/01/24 colonoscopy complete with good prep- diverticulosis throughout colon, small internal hemorrhoids. Recommendations for repeat in 10 years (2028). Code(s): K57.90 - Diverticulosis of intestine, part unspecified, without perforation or abscess without bleeding Category: Medical Plan: Findings noted; asymptomatic Additional Testing: None indicated at present Medication Management: None unless symptomatic Lifestyle Recommendations: High fiber diet, hydration Follow-Up: Repeat colonoscopy per standard screening (10y) Plan Follow-up in 8 weeks or sooner as needed Time: I spent a total of 45 minutes on the date of encounter which includes: Preparing to see the patient (reviewed previous documentation, test results and medical history) Performing a medically appropriate exam and/or evaluation Ordering medications, tests, and procedures Documenting clinical information in the health record Medications: New famotidine Take one tablet as needed for acid reflux 20 mg PO DAILY PRN 90 tabs 0RF GERD Coding Level of Care Code New Pt New Pt Level 4 (07077) Patient Type New Diagnoses Gastroesophageal reflux disease, unspecified whether esophagitis present K21.9 Esophagitis presence: esophagitis presence not specified Fatty liver K76.0 Diverticulosis K57.90
[2025-03-16 07:58] VITALS: BP 118/71; PULSE 72; BMI 28.6
--- OUTSIDE RECORDS SUMMARY | 2025-03-16 08:02 | XMS_ITS | Encounter Summary ---
Author Organization [facility] Address [address] [place] [address] Care Team Providers Care Patents Examiner Name Role Phone Keny Matias MD Primary Care Provider Encounter Details Date Type Department Care Team (Late st Contact Info) Description 04/02/2024 Lab Requisition [facility] - Main Lab [address] [facility] [place] [phone] Mavis Mckeon MD [address] [facility] [place] [address] [place] [id number] Frequency of micturition Social History Tobacco Use [...] Result [facility] [address] [place] [address], documented in this encounter Visit Diagnoses Diagnosis Frequency of micturition Urinary frequency documented in this encounter Care Teams Patents Examiner Relationship Specialty Start Date End Date Keny Matias MD [address] [place] [address] Dr Jaime [place] PCP - General 01/11/22 documented as of this encounter
--- OUTSIDE RECORDS SUMMARY | 2025-03-16 08:02 | XMS_ITS | Encounter Summary ---
Author Organization [facility] Address [address] [place] [address] Care Team Providers Care Farm Assistant Name Role Phone Keny Matias MD Primary Care Provider [phone] Encounter Details Date Type Department Care Team (Late st Contact Info) Description 07/23/2024 Lab Requisition [facility] - Main Lab [address] [facility] [place] [phone] Mavis Mckeon MD [address] [facility] [place] [address] [place] [id number] Dysuria Social History Tobacco Use Types Packs/Day [...] Escherichia coli(A) HOMER 07/24/2024 9:35 AM EDT [facility] Other Urine specimen [...] MICROBIOLOGY - G ENERAL ORDERABLES Final Result [facility] [address] [place] [address], [place] [phone] documented in this encounter Visit Diagnoses Diagnosis Dysuria documented in this encounter Care Teams Farm Assistant Relationship Specialty Start Date End Date Keny Matias MD [address] [place] [address] Dr Sandoval [place] PCP - General 01/11/22 documented as of this encounter
--- OUTSIDE RECORDS SUMMARY | 2025-03-16 08:02 | XMS_ITS | Clinical Summary ---
Author Organization [facility] Address [address] [place] [address] Phone Care Team Providers Care Performance Improvement Manager Name Role Phone Keny Matias MD Primary Care Provider [phone]- [phone] Allergies Active Allergy Reactions Criticality Noted Date [...] year. Mammo Location: [facility], [address] [place] [address], [phone], . -------- FINAL REPORT -------- Dictated By: Ese Bahena Dictated Date: 08/11/2024 08:07 ET Assigned Physician: Ese Bahena Reviewed and Electronically Signed By: Ese Bahena Signed Date: 08/11/2024 08:09 ET Workstation ID: [id number] Transcribed By: Self Edit Transcribed Date: 08/11/2024 [...] year. Mammo Location: [facility], [address] [place] [address], [address], . -------- FINAL REPORT -------- Dictated By: Ese Bahena Dictated Date: 08/11/2024 08:07 ET Assigned Physician: Ese Bahena Reviewed and Electronically Signed By: Ese Bahena Signed Date: 08/11/2024 08:09 ET Workstation ID: [id number] Transcribed By: Self Edit Transcribed Date: 08/11/2024 08:07 ET us Self Referral Sppl IMG BI PROCEDURES Final Resul t * COLONOSCOPY Anesthesia - MAC; [facility] ENDOSCOPY (04/01/2024 10:29 AM EST) [...] office PRN. Narrative 04/01/2024 10:31 AM EST [facility] GI Patient Name: Lelo Wang Procedure [...] retroflexion views. Procedure Code(s): --- Professional --- 15237, Colonoscopy, flexible; diagnostic, including collection of specimen(s) by brushing or washing, when performed (separate procedure) Diagnosis Code(s): --- Professional --- Z86.010, Personal history of colonic polyps K64.8, Other hemorrhoids K57.30, Diverticulosis of large intestine without perforation or abscess without bleeding CPT copyright 202 [employer]. All rights reserved. The codes documented in this report are preliminary and upon news intern review may be revised to meet current compliance requirements. Joey Greene MD 04/01/2024 10:30:56 AM This report has been signed electronically.Joey Greene MD Number of Addenda: 0 Note Initiated On: 04/01/2024 10:10 AM Scope In: Scope Out: Endoscopy Department at [facility] - [address] [place] [phone] Procedure Note Joey Greene MD - 04/01/2024 [facility] GI Patient Name: Lelo Wang Procedure [...] retroflexion views. Procedure Code(s): --- Professional --- 65075, Colonoscopy, flexible; diagnostic, including collection of specimen(s) by brushing or washing,when performed (separate procedure) Diagnosis Code(s): --- Professional --- Z86.010, Personal history of colonic polyps K64.8, Other hemorrhoids K57.30, Diverticulosis of large intestine without perforation or abscess without bleeding CPT copyright 2020 [employer]. All rights reserved. The codes documented in this report are preliminary and upon news intern reviewmay be revised to meet current compliance requirements. Joey Greene MD 04/01/2024 10:30:56 AM This report has been signed electronically.Joey Greene MD Number of Addenda: 0 Note Initiated On: 04/01/2024 10:10 AM Scope In: Scope Out: Endoscopy Department at [facility] - [address] [place] [phone] IMPRESSION: - Diverticulosis in the entire examined [...] Most Recently Relevant to Health Maintenance Insurance [facility] Care Teams Performance Improvement Manager Relationship Specialty Start Date End Date Keny Matias MD [address] [place] [address] Dr Jaime [place] PCP - General 01/11/22
== END 2025-03-16 08:44 | disposition home or self-care (01) ==
LOC: HO.HGI 07:55
PROVIDERS: PCP Family Medicine; Visit Provider Nurse Practitioner Family
DX: K21.9 Gastro-esophageal reflux disease without esophagitis (principal); K76.0 Fatty (change of) liver, not elsewhere classified; K57.90 Diverticulosis of intestine, part unspecified, without perforation or abscess without bleeding
CPT/HCPCS: 99204

== ENCOUNTER 2025-03-16 10:42 | Outpatient (AMB) | payer OTHER, SELFPAY ==
--- NOTE | 2025-03-16 10:45 | MHC.PC.OV ---
Vital Signs 03/16/25 10:50 Height 5 ft 8 in Weight 187 lb BMI 28.4 BP 130/67 Blood Pressure Location Rt brachial Position Sitting Respiration 16 Pulse 65 Pulse Source Pulse Oximeter Temp 97.3 F Temp Source Oral Pulse Oximetry (%) 100 Oxygen Delivery Method Room Air Intake Visit Reasons: Se[place] 03[place]14 [place] [facility] [place] Note: patient here for HD[place] [facility] Assistant Manager Retail Required: No Is last menstrual period known: No Post menopausal: No Patient : No Allergies Sulfa (Sulfonamide Antibiotics) (SULFA (SULFONAMIDE ANTIBIOTICS)) Allergy (Unknown, Verified 03/16/25 10:48) RASH atorvastatin Allergy (Verified 03/16/25 10:48) GI upset Penicillins Allergy (Verified 03/16/25 10:48) rash sulfacet Allergy (Unknown, Uncoded 03/16/25 10:48) Rash Sulfacet-R Allergy (Unknown, Uncoded 03/16/25 10:48) rash Medication List - Last Reconciled 03/16/25 by Keny Matias MD ezetimibe (Zetia) 10 mg PO DAILY 90 days famotidine 20 mg PO DAILY PRN hydrochlorothiazide 12.5 mg PO DAILY 90 days lorazepam 1 mg (2 x 0.5 mg) PO DAILY PRN omeprazole 20 mg PO BID Tobacco use date assessed: 03/16/25 Fall risk assessment: 1 Fall in past year Last assessed Fall Risk: 03/16/25 Dental Screening Dental Screen Date: 03/16/25 Did you have a dental visit in the last 12 months?: Yes Did you have a dental problem in the last 6 months where you did not have access to dental care?: No Was dental information given to patient?: Patient has dentist HPI Seen 03/14 at [facility] HPI Details 65 y/o female presents to f/u [facility] visit for elevated blood pressures. She reports she had been feeling unusual that day, noting she had felt anxious. She had gone to work and had noted blood pressure in the 160s over 80s which had increased to 170s/100s. Had taken an ativan to calm down. Blood pressure in the ED was in the 140s per pt, and pt noted it had gone down throughout her visit. BP today 130/67, 65p. Denies any chest pain. [facility] Medical History (Updated 03/16/25 @ 08:55 by Maame Henson CNP) Diverticulosis Fatty liver No pertinent past medical history Surgical History No pertinent past surgical history Social History Household Members: Spouse and Family Both parents involved: No Caregiver staying overnight: No Housing: House Are you a primary daycare manager to a significant other at home: No Do you presently have visiting nurse or other home services: No 75 years or older and lives alone: No Alcohol intake: current Alcohol intake frequency: holidays/special occasions only Alcohol type: hard liquor and other Patient Tobacco Use Status: Former Tobacco user e-Cigarette/Vaping Use: Never Used Second Hand Smoke Exposure: No Patient : No service: No Current occupational status: employed 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 Current occupational exposures/hazards: No Cognitive needs: No Hearing needs: No Vision needs: No Questionnaire Thrive Questionnaire Date Thrive assessed: 05/11/24 I am a: Patient What is your living situation today?: I have a steady place to live Within the past 12 months, did the food you bought not last and you didn't have the money to get more?: Never true Within the past 12 months, did you worry whether your food would run out before you got money to buy more?: Never true Do you have trouble paying for medicines?: No Do you have trouble getting transportation to medical appointments?: No Do you have trouble paying your heating and electricity bill?: No Do you have trouble taking care of your child, family member or friend?: No Do you have trouble with day-to-day activities such as bathing, preparing meals, shopping, managing finances, etc.?: No Are you currently unemployed and looking for a job?: No Are you interested in more education?: Yes Please select the resources that you would like help with: None Currently or been in a relationship where the following occur: No concerns reported THRIVE Score: 0 KARLA-7 AMB Questionnaire KARLA-7 Date KARLA - 7 assessed: 10/07/24 Source: Developed by Drs. Ankit Navarrete, Darline Damon, Dano Starr and colleagues, with an educational bev from [employer]. Review of Systems Const Denies chills, Denies fatigue, Denies fever(s), Denies headache(s) and Denies weakness ENT Denies dizziness and Denies headache(s) Card Denies dyspnea Resp Denies cough, Denies dyspnea, Denies wheezing and Denies other (shortness of breath) Musc Denies numbness and Denies tingling Neuro Denies dizziness, Denies headache(s), Denies numbness, Denies tingling and Denies weakness Psych Denies anxiety and Denies depression Endo Denies fatigue Aller/Immun Denies wheezing Physical exam (Primary Care) Vital Signs: Last Vital Signs Temp 97.3 F 03/16/25 10:50 Pulse 65 03/16/25 10:50 Resp 16 03/16/25 10:50 BP 130/67 03/16/25 10:50 Pulse Ox 100 03/16/25 10:50 Oxygen Delivery Method Room Air 03/16/25 10:50 BMI result Body Mass Index 28.4 Tobacco/Smoking Status: Tobacco use Status Tobacco use date assessed 03/16/25 03/16/25 10:52 Patient Tobacco Use Status Former Tobacco user 03/16/25 10:46 e-Cigarette/Vaping Use Never Used 03/16/25 10:46 Thrive Assessment: Date of Thrive Assessment Date Thrive assessed 05/11/24 03/16/25 10:46 Currently or been in a relationship where the following occur: No concerns reported Const General: well developed; No acute distress Nutritional Appearance: well nourished Orientation/consciousness: patient oriented x3 HENMT Head: Yes normocephalic and Yes atraumatic Eyes General: appearance normal, both eyes and all related structures Pupils: Equal, round and reactive pupils present EOM: EOMs intact bilaterally Resp Effort & Inspection: normal respiratory effort Neuro General: patient oriented x3 and gait normal Cranial nerves: Yes Equal, round and reactive pupils present Psych Affect: normal affect Coding Level of Care Code Est Pt Level 3 (92750) Diagnoses Hypertension I10 Anxiety F41.9 Assessment & Plan Assessment & Plan (1) Hypertension: Code(s): I10 - Essential (primary) hypertension Category: Medical Plan: Blood pressure has been fluctuating at home and somewhat elevated at work. She had been on hydrochlorothiazide 25 mg daily and this was decreased to 12.5 mg daily. She will increase this back to 25 mg daily Echocardiogram in August 2023 was negative.\ EKG shows subtle change with nonspecific T-wave changes compared with December 2024 and august 2023. Will check stress test (2) Anxiety: Code(s): F41.9 - Anxiety disorder, unspecified Category: Medical Plan: Ongoing anxiety which has been worse lately. Continue lorazepam as prescribed Follow-up at next visit Orders: Orders CA stress test Today I10 - Essential (primary) hypertension, R94.31 - Abnormal electrocardiogram [ECG] [EKG] Medications: Changed From hydrochlorothiazide 12.5 mg PO DAILY 90 days 90 tabs 4RF To hydrochlorothiazide 25 mg PO DAILY 90 tabs 4RF 90 days
[2025-03-16 10:50] VITALS: BP 130/67; PULSE 65; RESP 16; TEMP 36.3; O2SAT 100; BMI 28.4
== END 2025-03-16 12:26 | disposition home or self-care (01) ==
LOC: HO.HMCFM 10:43
PROVIDERS: PCP Family Medicine; Visit Provider Family Medicine
DX: I10 Essential (primary) hypertension (principal); F41.9 Anxiety disorder, unspecified

== ENCOUNTER → 2025-04-01 07:50 | Outpatient (REF) | payer OTHER, SELFPAY ==
--- OUTSIDE RECORDS SUMMARY | 2025-04-01 07:53 | XMS_ITS | Encounter Summary ---
Author Organization [facility] Address [address] [place] [address] Care Team Providers Care Fire Warden Name Role Phone Keny Matias MD Primary Care Provider Encounter Details Date Type Department Care Team (Late st Contact Info) Description 04/02/2024 Lab Requisition [facility] - Main Lab [address] [facility] [place] [phone] Mavis Mckeon MD [address] [address] Frequency of micturition Social History Tobacco Use [...] no further workup 04/03/2024 2:31 PM EST [facility] Urine Urine specimen obtained by clean catch procedure / Unknown 04/02/2024 4:27 PM EST 04/02/2024 5:54 PM EST us Mavis Mckeon MD LAB MICROBIOLOGY - G ENERAL ORDERABLES Final Result [facility] [address] [place] [address], documented in this encounter Visit Diagnoses Diagnosis Frequency of micturition Urinary frequency documented in this encounter Care Teams Fire Warden Relationship Specialty Start Date End Date Keny Matias MD [address] [place] [address] Dr Jaime [place] PCP - General 01/11/22 documented as of this encounter
--- OUTSIDE RECORDS SUMMARY | 2025-04-01 07:53 | XMS_ITS | Encounter Summary ---
Author Organization [facility] Address [address] [place] [address] Care Team Providers Care Comfort Station Supervisor Name Role Phone Keny Matias MD Primary Care Provider +1- [phone] Encounter Details Date Type Department Care Team (Late st Contact Info) Description 07/23/2024 Lab Requisition [facility] - Main Lab [address] [facility] [place] [phone] Mavis Mckeon MD [address] [facility] [address] [place] [phone] Dysuria Social History Tobacco Use Types Packs/Day [...] Escherichia coli(A) HOMER 07/24/2024 9:35 AM EDT [facility] Other Urine specimen from [...] MICROBIOLOGY - G ENERAL ORDERABLES Final Result [facility] [address] [place] [address], [place] [phone] documented in this encounter Visit Diagnoses Diagnosis Dysuria documented in this encounter Care Teams Comfort Station Supervisor Relationship Specialty Start Date End Date Keny Matias MD [address] [place] [address] Dr Sandoval [place] PCP - General 01/11/22 documented as of this encounter
--- OUTSIDE RECORDS SUMMARY | 2025-04-01 07:53 | XMS_ITS | Clinical Summary ---
Author Organization [facility] Address [address] [place] [address] Phone Care Team Providers Care Galley Hand Name Role Phone Keny Matias MD Primary Care Provider +1- [phone] Allergies Active Allergy Reactions Criticality Noted Date [...] Health Maintenance Due Date Last Done Comments Drug Screen 1961 Non-Opioid Controlled Substance Agreement 1961 Cervical Cancer Screening: Pap Smear 1982 Pneumococcal Vaccine: 50+ Years (1 of 1 - PCV) 2011 HIV Screening 03/17/2022 Hepatitis C Screening 03/17/2022 Social Influencers of Health Screening 03/17/2022 Depression Screening 04/14/2024 COVID-19 Vaccine (3 - season) 2024 05/22/2020, 04/26/2020 Influenza Vaccine (#1) 2024 Breast Cancer Screening 08/11/2026 08/12/19 25, 08/05/2023, 07/26/2022, Additional history exists DTaP,Tdap,and Td [...] year. Mammo Location: [facility], [address] [place] [address], [address], . -------- FINAL REPORT -------- Dictated By: Ese Bahena Dictated Date: 08/11/2024 08:07 ET Assigned Physician: Ese Bahena Reviewed and Electronically Signed By: Ese Bahena Signed Date: 08/11/2024 08:09 ET Workstation ID: [id number] Transcribed By: Self Edit Transcribed Date: 08/11/2024 [...] year. Mammo Location: [facility], [address] [place] [address], [address], . -------- FINAL REPORT -------- Dictated By: sEe Bahena Dictated Date: 08/11/2024 08:07 ET Assigned Physician: Ese Bahena Reviewed and Electronically Signed By: Ese Bahena Signed Date: 08/11/2024 08:09 ET Workstation ID: [id number] Transcribed By: Self Edit Transcribed Date: 08/11/2024 08:07 ET us Self Referral Sppl IMG BI PROCEDURES Final Resul t * COLONOSCOPY Anesthesia - MAC; [facility] ENDOSCOPY (04/01/2024 10:29 AM EST) [...] office PRN. Narrative 04/01/2024 10:31 AM EST [facility] GI Patient Name: Lelo Wang Procedure [...] retroflexion views. Procedure Code(s): --- Professional --- 65373, Colonoscopy, flexible; diagnostic, including collection of specimen(s) by brushing or washing, when performed (separate procedure) Diagnosis Code(s): --- Professional --- Z86.010, Personal history of colonic polyps K64.8, Other hemorrhoids K57.30, Diverticulosis of large intestine without perforation or abscess without bleeding CPT copyright 2021 [employer]. All rights reserved. The codes documented in this report are preliminary and upon sales forecast analyst review may be revised to meet current compliance requirements. Joey Greene MD 04/01/2024 10:30:56 AM This report has been signed electronically.Joey Greene MD Number of Addenda: 0 Note Initiated On: 04/01/2024 10:10 AM Scope In: Scope Out: Endoscopy Department at [facility] - [address] [place] [phone] Procedure Note Joey Greene MD - 04/01/2024 [facility] GI Patient Name: Lelo Wang Procedure [...] retroflexion views. Procedure Code(s): --- Professional --- 95970, Colonoscopy, flexible; diagnostic, including collection of specimen(s) by brushing or washing,when performed (separate procedure) Diagnosis Code(s): --- Professional --- Z86.010, Personal history of colonic polyps K64.8, Other hemorrhoids K57.30, Diverticulosis of large intestine without perforation or abscess without bleeding CPT copyright 2020 [employer]. All rights reserved. The codes documented in this report are preliminary and upon sales forecast analyst reviewmay be revised to meet current compliance requirements. Joey Greene MD 04/01/2024 10:30:56 AM This report has been signed electronically.Joey Greene MD Number of Addenda: 0 Note Initiated On: 04/01/2024 10:10 AM Scope In: Scope Out: Endoscopy Department at [facility] - [address] [place] [phone] IMPRESSION: - Diverticulosis in the entire examined [...] Most Recently Relevant to Health Maintenance Insurance [facility] Care Teams Galley Hand Relationship Specialty Start Date End Date Keny Matias MD [address] [place] [address] Dr Jaime [place] PCP - General 01/11/22
--- NOTE | 2025-04-01 07:54 | CA_ITS ---
Acquisition Time: 2025-04-01 07:56:09 Total Exercise Time: 00:06:45 Test Indications: Abnormal ECG Medications: ZETIA FAMOTIDINE HCTZ LORAZAPAM OMEPRAZOLE Protocol: ONI Max HR: 136 BPM 87% of Pred: 156 BPM Max BP: 180/80 mmHG Max Work Load: 8.1 METS Exercise stress test with exercise 6 mins 45 secs of Oni Protocol, achieving 87% MPHR, with reports of mild sOB, no chest pain, with frequent PVCs and rare couplets, with normotensive response to exercise. Without any EKG changes meeting criteria for ischemia. In recovery, breathing improved and pt feeling back to baseline. Test reviewed with Dr. Núñez. Referred By: Keny Matias Electronically Signed By: Kevin Arroyo
== END ==
LOC: HO.CARD 07:50
PROVIDERS: PCP Family Medicine; Visit Provider Family Medicine
DX: R94.31 Abnormal electrocardiogram [ECG] [EKG] (principal); I10 Essential (primary) hypertension
CPT/HCPCS: 93017

== ENCOUNTER → 2025-04-01 07:54 | Outpatient (BNV) | payer OTHER, SELFPAY | PROVIDERS: PCP Family Medicine | DX: I49.3 Ventricular premature depolarization (principal); R06.02 Shortness of breath | CPT/HCPCS: 93016; 93018 ==

== ENCOUNTER 2025-04-12 08:25 | Outpatient (AMB) | payer OTHER, SELFPAY ==
--- NOTE | 2025-04-12 08:29 | MHC.PC.OV ---
Vital Signs 04/12/25 08:34 Height 5 ft 8 in Weight 184 lb BMI 28.0 BP 110/70 Blood Pressure Location Rt brachial Position Sitting Respiration 16 Pulse 66 Pulse Source Pulse Oximeter Temp 98 F Temp Source Temporal Artery Scan Pulse Oximetry (%) 98 Oxygen Delivery Method Room Air Intake Visit Reasons: f/u HTN, HLD Intake Note: Lelo presents in the office today for a follow up to hypertension and cholesterol. Patient had a recent stress test. Tire Maintenance Technician Required: No Is last menstrual period known: No Post menopausal: Yes Patient : No Allergies Sulfa (Sulfonamide Antibiotics) (SULFA (SULFONAMIDE ANTIBIOTICS)) Allergy (Unknown, Verified 04/12/25 08:32) RASH atorvastatin Allergy (Verified 04/12/25 08:32) GI upset Penicillins Allergy (Verified 04/12/25 08:32) rash sulfacet Allergy (Unknown, Uncoded 04/12/25 08:32) Rash Sulfacet-R Allergy (Unknown, Uncoded 04/12/25 08:32) rash Medication List - Last Reconciled 04/12/25 by Keny Matias MD aspirin 81 mg PO DAILY ezetimibe (Zetia) 10 mg PO DAILY 90 days famotidine 20 mg PO DAILY PRN hydrochlorothiazide 25 mg PO DAILY 90 days lorazepam 1 mg (2 x 0.5 mg) PO DAILY PRN omeprazole 20 mg PO BID Tobacco use date assessed: 04/12/25 Dental Screening Dental Screen Date: 04/12/25 Did you have a dental visit in the last 12 months?: Yes Did you have a dental problem in the last 6 months where you did not have access to dental care?: No Was dental information given to patient?: Patient has dentist HPI f/u HTN, HLD HPI Details 65 y/o female presents to f/u HTN, HLD. Blood pressure today 110/70, 66p. She is on HCTZ 25mg daily. Notes ongoing palpitations at times. Work up including stress test had been fine. Lipid panel drawn 03/15/25. Triglycerides 92. TC 210. LDL 130. HDL 62. HPI Comments History of Present Illness Details Documentation assistance for Keny Matias MD, was provided by Haim Velarde,? Laundry Technician on 04/12/2025 at 8:53 AM EST. I, Dr. Matias, have read, observed, and verified documentation. [facility] Medical History (Updated 03/16/25 @ 08:55 by Maame Henson CNP) Diverticulosis Fatty liver No pertinent past medical history Surgical History No pertinent past surgical history Social History (Updated 04/12/25 @ 08:34 by Lindsay Gutierrez CMA) Household Members: Spouse and Family Both parents involved: No Caregiver staying overnight: No Housing: House Are you a primary long term care social worker to a significant other at home: No Do you presently have visiting nurse or other home services: No 75 years or older and lives alone: No Alcohol intake: current Alcohol intake frequency: holidays/special occasions only Alcohol type: hard liquor and other Patient Tobacco Use Status: Former Tobacco user e-Cigarette/Vaping Use: Never Used Second Hand Smoke Exposure: No Use of substances other than those prescribed or required for medical reasons: No Patient : No service: No Current occupational status: employed 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 Current occupational exposures/hazards: No Cognitive needs: No Hearing needs: No Vision needs: No Questionnaire Thrive Questionnaire Date Thrive assessed: 05/11/24 I am a: Patient What is your living situation today?: I have a steady place to live Within the past 12 months, did the food you bought not last and you didn't have the money to get more?: Never true Within the past 12 months, did you worry whether your food would run out before you got money to buy more?: Never true Do you have trouble paying for medicines?: No Do you have trouble getting transportation to medical appointments?: No Do you have trouble paying your heating and electricity bill?: No Do you have trouble taking care of your child, family member or friend?: No Do you have trouble with day-to-day activities such as bathing, preparing meals, shopping, managing finances, etc.?: No Are you currently unemployed and looking for a job?: No Are you interested in more education?: Yes Currently or been in a relationship where the following occur: No concerns reported THRIVE Score: 0 KARLA-7 AMB Questionnaire KARLA-7 Date KARLA - 7 assessed: 10/07/24 Source: Developed by Drs. Ankit Navarrete, Darline B.W. Dano Damon and colleagues, with an educational bev from [facility]. Review of Systems Const Denies chills, Denies fatigue, Denies fever(s), Denies headache(s) and Denies weakness ENT Denies dizziness and Denies headache(s) Card Denies dyspnea Resp Denies cough, Denies dyspnea, Denies wheezing and Denies other (shortness of breath) Musc Denies numbness and Denies tingling Neuro Denies dizziness, Denies headache(s), Denies numbness, Denies tingling and Denies weakness Psych Denies anxiety and Denies depression Endo Denies fatigue Aller/Immun Denies wheezing Physical exam (Primary Care) Vital Signs: Last Vital Signs Temp 98 F 04/12/25 08:34 Pulse 66 04/12/25 08:34 Resp 16 04/12/25 08:34 BP 110/70 04/12/25 08:34 Pulse Ox 98 04/12/25 08:34 Oxygen Delivery Method Room Air 04/12/25 08:34 BMI result Body Mass Index 28.0 Tobacco/Smoking Status: Tobacco use Status Tobacco use date assessed 04/12/25 04/12/25 08:37 Patient Tobacco Use Status Former Tobacco user 04/12/25 08:37 e-Cigarette/Vaping Use Never Used 04/12/25 08:37 Thrive Assessment: Date of Thrive Assessment Date Thrive assessed 05/11/24 04/12/25 08:37 Currently or been in a relationship where the following occur: No concerns reported Const General: well developed; No acute distress Nutritional Appearance: well nourished Orientation/consciousness: patient oriented x3 [place] Head: Yes normocephalic and Yes atraumatic Eyes General: appearance normal, both eyes and all related structures Pupils: Equal, round and reactive pupils present EOM: EOMs intact bilaterally Resp Effort & Inspection: normal respiratory effort Neuro General: patient oriented x3 and gait normal Cranial nerves: Yes Equal, round and reactive pupils present Psych Affect: normal affect Coding Level of Care Code Est Pt Level 4 (12848) Diagnoses Hypertension I10 Elevated LDL cholesterol level E78.00 Abnormal EKG R94.31 Assessment & Plan Assessment & Plan (1) Hypertension: Code(s): I10 - Essential (primary) hypertension Category: Medical Plan: Blood pressure now appears well controlled after increasing hydrochlorothiazide. Now at goal of less than 140/90 Continue current medication (2) Elevated LDL cholesterol level: Code(s): E78.00 - Pure hypercholesterolemia, unspecified Category: Medical Plan: LDL cholesterol is still too high on Zetia Adding pravastatin. She did not tolerate atorvastatin If she is tolerating the pravastatin and we can adjust the dose as needed, will review Zetia in the future. (3) Abnormal EKG: Code(s): R94.31 - Abnormal electrocardiogram [ECG] [EKG] Category: Medical Plan: Patient had significantly elevated blood pressures and EKG had shown some nonspecific changes. A prior echocardiogram was negative Stress test is negative for ischemia or infarction. Medications: New pravastatin 10 mg PO BEDTIME 90 tabs 2RF 90 days
[2025-04-12 08:34] VITALS: BP 110/70; PULSE 66; RESP 16; TEMP 36.6; O2SAT 98; BMI 28.0
--- OUTSIDE RECORDS SUMMARY | 2025-04-12 09:59 | XMS_ITS | Clinical Summary ---
Author Organization [facility] Address [address] [place] [address] Phone Care Team Providers Care Mother Repairer Name Role Phone Keny Matias MD Primary Care Provider +1- [phone] Allergies Active Allergy Reactions Criticality Noted Date [...] year. Mammo Location: [facility], [address] [place] [address], [address], . -------- FINAL REPORT -------- Dictated By: Ese Bahena Dictated Date: 08/11/2024 08:07 ET Assigned Physician: Ese Bahena Reviewed and Electronically Signed By: Ese Bahena Signed Date: 08/11/2024 08:09 ET Workstation ID: [id number] Transcribed By: Self Edit Transcribed Date: 08/11/2024 [...] year. Mammo Location: [facility], [address] [place] [address], [address], . -------- FINAL REPORT -------- Dictated By: Ese Bahena Dictated Date: 08/11/2024 08:07 ET Assigned Physician: Ese Bahena Reviewed and Electronically Signed By: Ese Bahena Signed Date: 08/11/2024 08:09 ET Workstation ID: [id number] Transcribed By: Self Edit Transcribed Date: 08/11/2024 08:07 ET us Self Referral Sppl IMG BI PROCEDURES Final Resul t * COLONOSCOPY Anesthesia - MAC; [facility] ENDOSCOPY (04/01/2024 10:29 AM EST) [...] office PRN. Narrative 04/01/2024 10:[address] [facility] Patient Name: Lelo Wang Procedure Date: [...] retroflexion views. Procedure Code(s): --- Professional --- 98377, Colonoscopy, flexible; diagnostic, including collection of specimen(s) by brushing or washing, when performed (separate procedure) Diagnosis Code(s): --- Professional --- Z86.010, Personal history of colonic polyps K64.8, Other hemorrhoids K57.30, Diverticulosis of large intestine without perforation or abscess without bleeding CPT copyright 2021 [employer]. All rights reserved. The codes documented in this report are preliminary and upon administrative personal assistant review may be revised to meet current compliance requirements. Joey Greene MD 04/01/2024 10:30:56 AM This report has been signed electronically.Joey Greene MD Number of Addenda: 0 Note Initiated On: 04/01/2024 10:10 AM Scope In: Scope Out: Endoscopy Department at [facility] - [address] [place] [phone] Procedure Note Joey Greene MD - 04/01/2024 [facility] Patient Name: Lelo Wang Procedure Date: [...] retroflexion views. Procedure Code(s): --- Professional --- 70589, Colonoscopy, flexible; diagnostic, including collection of specimen(s) by brushing or washing,when performed (separate procedure) Diagnosis Code(s): --- Professional --- Z86.010, Personal history of colonic polyps K64.8, Other hemorrhoids K57.30, Diverticulosis of large intestine without perforation or abscess without bleeding CPT copyright 2020 [employer]. All rights reserved. The codes documented in this report are preliminary and upon administrative personal assistant reviewmay be revised to meet current compliance requirements. Joey Greene MD 04/01/2024 10:30:56 AM This report has been signed electronically.Joey Greene MD Number of Addenda: 0 Note Initiated On: 04/01/2024 10:10 AM Scope In: Scope Out: Endoscopy Department at [facility] - [address] [place] [phone] IMPRESSION: - Diverticulosis in the entire examined [...] Most Recently Relevant to Health Maintenance Insurance [facility] Care Teams Mother Repairer Relationship Specialty Start Date End Date Keny Matias MD [address] [place] [address] Dr Jaime [place] PCP - General 01/11/22
--- OUTSIDE RECORDS SUMMARY | 2025-04-12 09:59 | XMS_ITS | Encounter Summary ---
Author Organization [facility] Address [address] [place] [address] Care Team Providers Care Education Director Name Role Phone Keny Matias MD Primary Care Provider +1- [phone] Encounter Details Date Type Department Care Team (Late st Contact Info) Description 07/23/2024 Lab Requisition [facility] - Main Lab 299 [facility] [place] [phone] Mavis Mckeon MD [address] [facility] [address] [place] [phone] Dysuria Social History Tobacco Use Types Packs/Day [...] Escherichia coli(A) HOMER 07/24/2024 9:35 AM EDT [facility] Other Urine specimen from urethra [...] MICROBIOLOGY - G ENERAL ORDERABLES Final Result [facility] [address] [place] [address], [place] [phone] documented in this encounter Visit Diagnoses Diagnosis Dysuria documented in this encounter Care Teams Education Director Relationship Specialty Start Date End Date Keny Matias MD [address] [place] [address] Dr Sandoval [place] PCP - General 01/11/22 documented as of this encounter
--- OUTSIDE RECORDS SUMMARY | 2025-04-12 10:00 | XMS_ITS | Encounter Summary ---
Author Organization [facility] Address [address] [place] [address] Care Team Providers Care Electronic Industrial Controls Mechanic Name Role Phone Keny Matias MD Primary Care Provider Encounter Details Date Type Department Care Team (Late st Contact Info) Description 04/02/2024 Lab Requisition [facility] - Main Lab 299 [facility] [place] [phone] Mavis Mckeon MD [address] [facility] [address] [place] [phone] Frequency of micturition Social History Tobacco Use [...] no further workup 04/03/2024 2:31 PM EST [facility] Urine Urine specimen obtained by clean catch procedure / Unknown 04/02/2024 4:27 PM EST 04/02/2024 5:54 PM EST us Mavis Mckeon MD LAB MICROBIOLOGY - G ENERAL ORDERABLES Final Result [facility] [address] [place] [address], documented in this encounter Visit Diagnoses Diagnosis Frequency of micturition Urinary frequency documented in this encounter Care Teams Electronic Industrial Controls Mechanic Relationship Specialty Start Date End Date Keny Matias MD [address] [place] [address] Dr Jaime [place] PCP - General 01/11/22 documented as of this encounter
== END 2025-04-12 09:05 | disposition home or self-care (01) ==
PROVIDERS: PCP Family Medicine; Visit Provider Family Medicine
DX: I10 Essential (primary) hypertension (principal); E78.00 Pure hypercholesterolemia, unspecified; R94.31 Abnormal electrocardiogram [ECG] [EKG]